=== PATIENT | male | born 1970 ===

== ENCOUNTER 2017-02-12 13:03 | Emergency (ER) | payer BC, OTHER ==
[2017-02-12 13:18] VITALS: BP 131/77; PULSE 92; RESP 20; TEMP 98.6; O2SAT 98; BMI 28.6
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
== END 2017-02-12 14:30 | disposition home or self-care (01) ==
LOC: C.ER 13:03
DX: F19.10 Other psychoactive substance abuse, uncomplicated (principal)

== ENCOUNTER 2017-04-09 17:02 | Emergency (ER) | payer BC, OTHER, MEDICAID ==
[2017-04-09 17:02] VITALS: BMI 28.6
[2017-04-09 17:07] VITALS: BP 107/74; PULSE 67; RESP 20; TEMP 98.2; O2SAT 98
[2017-04-09] MEDS ORDERED: Naproxen 550 mg Tab PO STA (17:27)
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
[2017-04-09] MEDS ORDERED: Naproxen 550 mg Tab PO ONE (17:33)
== END 2017-04-09 17:34 | disposition home or self-care (01) ==
LOC: C.ER 17:02 → SUPCPDRO 17:02 → C.ER 17:34
DX: J02.8 Acute pharyngitis due to other specified organisms (principal); Z72.0 Tobacco use

== ENCOUNTER 2017-06-24 15:33 | Inpatient (IN) | payer BC, OTHER, MEDICAID ==
[2017-06-24 15:42] VITALS: BMI 22.7
[2017-06-24] MEDS ORDERED: Sodium Chloride 0.9% 1,000 ML IV ONE (16:09)
[2017-06-24 16:41] LABS: BASO # 0.1 K/uL (0.0-0.2); BASO % 0.3 % (0.0-2.0); EOS % 0.3 % (0.0-4.0); HEMATOCRIT 39.8 % (35.0-51.0); LYMPH # 0.9 K/uL (1.0-4.3); LYMPH % 5.6 % (20.0-40.0); MEAN CELL VOLUME 78.4 fL (80.0-94.0); MEAN CORPUSCULAR HEMOGLOBIN 26.2 pg (27.0-31.0); MEAN CORPUSCULAR HGB CONC 33.4 g/dL (33.0-37.0); MONO % 6.1 % (0.0-10.0); PLATELET COUNT 214 K/uL (130-400); WHITE BLOOD COUNT 16.4 K/uL (4.8-10.8)
[2017-06-24 16:49] LABS: CHLORIDE 93 mmol/L (98-107); POTASSIUM 4.2 mmol/L (3.6-5.2); SODIUM 130 mmol/L (132-148)
[2017-06-24 16:51] LABS: ALB/GLOB RATIO 0.9 (1.0-2.1); AST/SGOT 39 U/L (17-59); BILIRUBIN,TOTAL 1.8 mg/dL (0.2-1.3); CARBON DIOXIDE 24 mmol/L (22-30); GFR AFRICAN-AMERICAN > 60; TOTAL PROTEIN 8.1 g/dL (6.3-8.3)
[2017-06-24 16:52] LABS: ALCOHOL SERUM < 10 mg/dl (0-10); ALKALINE PHOSPHATASE 82 U/L (38-126); ALT/SGPT 48 U/L (21-72); BLOOD UREA NITROGEN 16 mg/dL (9-20); CALCIUM 8.6 mg/dl (8.6-10.4); GLUCOSE,RANDOM 103 mg/dL (75-110)
[2017-06-24 16:57] LABS: INR 1.4
--- NOTE | 2017-06-24 16:58 | RAD ---
HISTORY: Cough COMPARISON: Chest x-ray performed 05/21/16 TECHNIQUE: Chest, one view. FINDINGS: LUNGS: No focal consolidation. Please note that chest x-ray has limited sensitivity for the detection of pulmonary masses. PLEURA: No significant pleural effusion identified. No definite pneumothorax . CARDIOVASCULAR: The cardiomediastinal silhouette appears within normal limits of size. OSSEOUS STRUCTURES: No acute osseous abnormality identified. VISUALIZED UPPER ABDOMEN: Unremarkable. OTHER FINDINGS: None. IMPRESSION: No focal consolidation, significant pleural effusion, or definite pneumothorax identified.
[2017-06-24 17:18] LABS: RBC URINE 41 /hpf (0-3); URINE BACTERIA MOD (<OCC); URINE BILIRUBIN NEGATIVE (NEGATIVE); URINE BLOOD 3+ (NEGATIVE); URINE COLOR Amber (YELLOW); URINE GLUCOSE (UA) NORMAL (Normal); URINE KETONE 1+ mg/dL (NEGATIVE); URINE LEUKOCYTE ESTERASE 3+ Leu/uL (Negative); URINE PROTEIN 2+ mg/dL (NEGATIVE); URINE UROBILINOGEN NORMAL mg/dL (0.2-1.0); WBC CLUMPS MANY /hpf; WBC URINE 1496 /hpf (0-5)
--- NOTE | 2017-06-24 18:50 | CT ---
PROCEDURE: CT Abdomen and Pelvis without intravenous contrast HISTORY: abd and back pain. UTI. r/o kidney stones. COMPARISON: None. TECHNIQUE: Axial and reformatted coronal and sagittal CT images of the abdomen and pelvis were obtained without IV or oral contrast administration.. Contrast Dose: 0 Radiation dose: Total exam DLP = 208.26 mGy-cm. This CT exam was performed using one or more of the following dose reduction techniques: Automated exposure control, adjustment of the mA and/or kV according to patient size, and/or use of iterative reconstruction technique. FINDINGS: LOWER THORAX: Unremarkable. LIVER: The liver is mildly enlarged demonstrate heterogeneous attenuation. GALLBLADDER AND BILE DUCTS: Unremarkable. PANCREAS: Unremarkable. No gross lesion or ductal dilatation. SPLEEN: The spleen is mildly enlarged measures up to 15 centimeter. ADRENALS: The adrenal glands are not well visualized. No definite evidence of mass lesion at the adrenals. KIDNEYS AND URETERS: No evidence of nephrolithiasis or hydronephrosis. Trace right perinephric fluid seen. VASCULATURE: Unremarkable. No aortic aneurysm. BOWEL: Unremarkable. No obstruction. No gross mural thickening. Mild wall thickening of the rectum noted. APPENDIX: The appendix is not clearly visualized. No definite evidence of acute appendicitis. PERITONEUM: Unremarkable. No free fluid. No free air. LYMPH NODES: Unremarkable. No enlarged lymph nodes. BLADDER: [id number] urinary bladder wall thickening. REPRODUCTIVE: Unremarkable. BONES: No acute fracture. OTHER FINDINGS: None. IMPRESSION: No evidence of nephrolithiasis or hydronephrosis. Trace right perinephric stranding and fluid seen. [id number] urinary bladder wall thickening. Splenomegaly of uncertain etiology.
[2017-06-24] MEDS ORDERED: cefTRIAXone IV 1 gm in Dextros 50 ML IVPB ONE ×2 (19:04→19:47)
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
[2017-06-24] MEDS ORDERED: Sodium Chloride 0.9% 1,000 ML IV SCH (20:00)
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
--- NOTE | 2017-06-24 21:44 | US ---
EXAM: US Retroperitoneal Complete, Renal EXAM DATE/TIME: 06/24/2017 7:59 PM CLINICAL HISTORY: 47 years old, male; Condition or disease; Other: Acute pyelonephritis TECHNIQUE: Real-time ultrasound of the retroperitoneum (complete) with image documentation. COMPARISON: There are no prior studies for comparison. CT abdomen pelvis 06/24/17 not available for comparison FINDINGS: Right kidney: Right kidney measures approximately 12.8 x 3.7 x 4.2 cm. There is increase cortical echogenicity.Corticomedullary differentiation is poorly visualized.There is no pelvocaliectasis. There is trace perinephric fluid Left kidney: Left kidney measures approximately 12 x 5 x 4.7 cm. Corticomedullary differentiation is visualized. There is no pelvocaliectasis. Bladder: Bladder is almost empty. There is mild bladder wall prominence. Aorta: Visualized portion of the aorta is unremarkable. IMPRESSION: Normal size kidneys, no hydronephrosis; medical renal disease on the right with trace perinephric fluid
[2017-06-24] MEDS: Sodium Chloride 0.9% 1,000 ML IV SCH (21:46)
[2017-06-24 22:12] LABS: NEUTROPHIL 78 % (50-75); TOTAL CELLS COUNTED 100
[2017-06-24 22:13] LABS: LARGE PLATELETS PRESENT; SMUDGE CELLS PRESENT
[2017-06-25] MEDS: Pantoprazole 40 mg EC Tab PO SCH (10:52)
[2017-06-25] MEDS: Enoxaparin 40 mg Syringe SC SCH (10:52)
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
--- NOTE | 2017-06-25 17:38 | CP.PCM.PN ---
Subjective - Date & Time of Evaluation Date of Evaluation: 06/25/17 Time of Evaluation: 07:40 - Subjective Subjective: clinically same Objective - Vital Signs/Intake and Output Vital Signs (last 24 hours): Temp Pulse Resp BP Pulse Ox 99.5 F 58 L 20 103/60 99 06/25/17 16:00 06/25/17 16:00 06/25/17 16:00 06/25/17 16:00 06/25/17 16:00 Intake and Output: 06/25/17 06/25/17 06:59 18:59 Intake Total 500 Balance 500 - Medications Medications: Current Medications Enoxaparin Sodium (Lovenox) 40 mg SC DAILY [facility] Last Admin: 06/25/17 10:52 Dose: 40 mg Sodium Chloride (Sodium Chloride 0.9%) 1,000 mls @ 50 mls/hr IV .Q20H [facility] Last Admin: 06/24/17 21:46 Dose: 50 mls/hr Vancomycin HCl 1 gm/ Sodium (Chloride) 250 mls @ 166.7 mls/hr IVPB Q24H [facility] Cefepime HCl (Maxipime Iv 1 Gm Premix) 1 gm in 50 mls @ 100 mls/hr IVPB Q12H [facility] Pantoprazole Sodium (Protonix Ec Tab) 40 mg PO DAILY [facility] Last Admin: 06/25/17 10:52 Dose: 40 mg - Labs Labs: 06/24/17 16:36 06/24/17 16:36 PT 15.4 SECONDS (9.7-12.2) H 06/24/17 16:36 INR 1.4 06/24/17 16:36 APTT 35 SECONDS (21-34) H 06/24/17 16:36 - Constitutional Appears: Well - Head Exam Head Exam: ATRAUMATIC, NORMAL INSPECTION, NORMOCEPHALIC - Eye Exam Eye Exam: EOMI, Normal appearance, PERRL Pupil Exam: NORMAL ACCOMODATION, PERRL - ENT Exam ENT Exam: Mucous Membranes Moist, Normal Exam - Neck Exam Neck Exam: Full ROM, Normal Inspection. absent: Lymphadenopathy - Respiratory Exam Respiratory Exam: Decreased Breath Sounds - Cardiovascular Exam Cardiovascular Exam: REGULAR RHYTHM, +S1, +S2 - GI/Abdominal Exam GI & Abdominal Exam: Soft, Diminished Bowel Sounds - Rectal Exam Rectal Exam: Deferred
[2017-06-25] MEDS: Cefepime IV 1 gm in Dextrose 1 GM/50 ML BAG IVPB SCH (17:42)
[2017-06-25] MEDS: Sodium Chloride 0.9% 1,000 ML IV SCH ×2 (17:44→21:11)
[2017-06-26] MEDS: Cefepime IV 1 gm in Dextrose 1 GM/50 ML BAG IVPB SCH ×2 (04:37→17:34)
[2017-06-26 07:57] LABS: BASO % 0.1 % (0.0-2.0); EOS % 0.1 % (0.0-4.0); HEMATOCRIT 38.1 % (35.0-51.0); LYMPH # 1.7 K/uL (1.0-4.3); LYMPH % 15.5 % (20.0-40.0); MEAN CELL VOLUME 78.5 fL (80.0-94.0); MEAN CORPUSCULAR HEMOGLOBIN 26.2 pg (27.0-31.0); MEAN CORPUSCULAR HGB CONC 33.4 g/dL (33.0-37.0); MEAN PLATELET VOLUME 8.4 fL (7.2-11.7); NRBC % 0.1 % (0.0-2.0); RED CELL DISTRIBUTION WIDTH 14.9 % (11.5-14.5)
[2017-06-26 08:14] LABS: CHLORIDE 103 mmol/L (98-107)
[2017-06-26 08:15] LABS: POTASSIUM 3.3 mmol/L (3.6-5.2); SODIUM 134 mmol/L (132-148)
[2017-06-26 08:17] LABS: GFR AFRICAN-AMERICAN > 60
[2017-06-26 08:18] LABS: BLOOD UREA NITROGEN 18 mg/dL (9-20); CALCIUM 8.2 mg/dl (8.6-10.4); CARBON DIOXIDE 20 mmol/L (22-30); GLUCOSE,RANDOM 99 mg/dL (75-110)
[2017-06-26] MEDS ORDERED: Potassium Chloride 20 mEq ER Tab PO ONE ×2 (08:33→10:00)
[2017-06-26] MEDS: Enoxaparin 40 mg Syringe SC SCH ×2 (08:55→14:34)
[2017-06-26] MEDS: Pantoprazole 40 mg EC Tab PO SCH ×2 (08:55→14:34)
[2017-06-26] MEDS: Sodium Chloride 0.9% 1,000 ML IV SCH ×2 (14:37→17:36)
--- NOTE | 2017-06-26 17:21 | CP.PCM.PN ---
Subjective - Date & Time of Evaluation Date of Evaluation: 06/26/17 Time of Evaluation: 08:00 - Subjective Subjective: clinically same Objective - Vital Signs/Intake and Output Vital Signs (last 24 hours): Temp Pulse Resp BP Pulse Ox 97.7 F 52 L 20 112/61 99 06/26/17 09:00 06/26/17 15:41 06/26/17 09:00 06/26/17 15:41 06/26/17 15:41 Intake and Output: 06/26/17 06/26/17 06:59 18:59 Intake Total 1300 Balance 1300 - Medications Medications: Current Medications Enoxaparin Sodium (Lovenox) 40 mg SC DAILY [facility] Last Admin: 06/26/17 14:34 Dose: Not Given Sodium Chloride (Sodium Chloride 0.9%) 1,000 mls @ 50 mls/hr IV .Q20H [facility] Last Admin: 06/26/17 14:37 Dose: Not Given Vancomycin HCl 1 gm/ Sodium (Chloride) 250 mls @ 166.7 mls/hr IVPB Q24H [facility] Last Admin: 06/25/17 19:26 Dose: 166.7 mls/hr Cefepime HCl (Maxipime Iv 1 Gm Premix) 1 gm in 50 mls @ 100 mls/hr IVPB Q12H [facility] Last Admin: 06/26/17 04:37 Dose: 100 mls/hr Pantoprazole Sodium (Protonix Ec Tab) 40 mg PO DAILY [facility] Last Admin: 06/26/17 14:34 Dose: Not Given - Labs Labs: 06/26/17 07:48 06/26/17 07:48 PT 15.4 SECONDS (9.7-12.2) H 06/24/17 16:36 INR 1.4 06/24/17 16:36 APTT 35 SECONDS (21-34) H 06/24/17 16:36 - Constitutional Appears: Well - Head Exam Head Exam: ATRAUMATIC, NORMAL INSPECTION, NORMOCEPHALIC - Eye Exam Eye Exam: EOMI, Normal appearance, PERRL Pupil Exam: NORMAL ACCOMODATION, PERRL - ENT Exam ENT Exam: Mucous Membranes Moist, Normal Exam - Neck Exam Neck Exam: Full ROM, Normal Inspection. absent: Lymphadenopathy - Respiratory Exam Respiratory Exam: Decreased Breath Sounds - Cardiovascular Exam Cardiovascular Exam: REGULAR RHYTHM, +S1, +S2 - GI/Abdominal Exam GI & Abdominal Exam: Soft, Diminished Bowel Sounds - Rectal Exam Rectal Exam: Deferred
--- NOTE | 2017-06-26 18:26 | CP.PCM.PN ---
Subjective - Date & Time of Evaluation Date of Evaluation: 06/26/17 Time of Evaluation: 07:00 - Subjective Subjective: events noted urine + e coli rx in progress Objective - Vital Signs/Intake and Output Vital Signs (last 24 hours): Temp Pulse Resp BP Pulse Ox 97.7 F 52 L 20 112/61 99 06/26/17 09:00 06/26/17 15:41 06/26/17 09:00 06/26/17 15:41 06/26/17 15:41 Intake and Output: 06/26/17 06/26/17 06:59 18:59 Intake Total 1300 Balance 1300 - Medications Medications: Current Medications Enoxaparin Sodium (Lovenox) 40 mg SC DAILY [facility] Last Admin: 06/26/17 14:34 Dose: Not Given Sodium Chloride (Sodium Chloride 0.9%) 1,000 mls @ 50 mls/hr IV .Q20H [facility] Last Admin: 06/26/17 17:36 Dose: 50 mls/hr Vancomycin HCl 1 gm/ Sodium (Chloride) 250 mls @ 166.7 mls/hr IVPB Q24H [facility] Last Admin: 06/25/17 19:26 Dose: 166.7 mls/hr Cefepime HCl (Maxipime Iv 1 Gm Premix) 1 gm in 50 mls @ 100 mls/hr IVPB Q12H [facility] Last Admin: 06/26/17 17:34 Dose: 100 mls/hr Pantoprazole Sodium (Protonix Ec Tab) 40 mg PO DAILY [facility] Last Admin: 06/26/17 14:34 Dose: Not Given - Labs Labs: 06/26/17 07:48 06/26/17 07:48 PT 15.4 SECONDS (9.7-12.2) H 06/24/17 16:36 INR 1.4 06/24/17 16:36 APTT 35 SECONDS (21-34) H 06/24/17 16:36 - Constitutional Appears: Non-toxic, Chronically Ill - Head Exam Head Exam: NORMOCEPHALIC - Eye Exam Eye Exam: PERRL. absent: Scleral icterus - ENT Exam ENT Exam: Mucous Membranes Dry - Neck Exam Neck Exam: absent: Lymphadenopathy - Respiratory Exam Respiratory Exam: Decreased Breath Sounds, Clear to Ausculation Bilateral - Cardiovascular Exam Cardiovascular Exam: REGULAR RHYTHM - GI/Abdominal Exam GI & Abdominal Exam: Distended, Soft Assessment and Plan (1) Acute pyelonephritis Status: Acute - Assessment and Plan (Free Text) Plan: cont iv rx eval
[2017-06-27] MEDS: Cefepime IV 1 gm in Dextrose 1 GM/50 ML BAG IVPB SCH ×2 (04:41→18:42)
[2017-06-27 07:33] LABS: BASO % 0.2 % (0.0-2.0); EOS % 0.3 % (0.0-4.0); HEMATOCRIT 35.4 % (35.0-51.0); LYMPH # 1.7 K/uL (1.0-4.3); LYMPH % 19.9 % (20.0-40.0); MEAN CELL VOLUME 78.2 fL (80.0-94.0); MEAN CORPUSCULAR HEMOGLOBIN 26.3 pg (27.0-31.0); MEAN CORPUSCULAR HGB CONC 33.7 g/dL (33.0-37.0); MEAN PLATELET VOLUME 8.2 fL (7.2-11.7); MONO # 0.7 K/uL (0.0-0.8); MONO % 8.8 % (0.0-10.0); WHITE BLOOD COUNT 8.3 K/uL (4.8-10.8)
[2017-06-27 07:40] LABS: CHLORIDE 107 mmol/L (98-107); POTASSIUM 3.6 mmol/L (3.6-5.2); SODIUM 139 mmol/L (132-148)
[2017-06-27 07:43] LABS: BLOOD UREA NITROGEN 12 mg/dL (9-20); CARBON DIOXIDE 21 mmol/L (22-30); GFR AFRICAN-AMERICAN > 60
[2017-06-27 07:44] LABS: CALCIUM 8.8 mg/dl (8.6-10.4); GLUCOSE,RANDOM 96 mg/dL (75-110)
[2017-06-27 08:15] LABS: PROSTATE SPECIFIC ANTIGEN 3.38 ng/mL (0.00-4.0)
[2017-06-27] MEDS: Sodium Chloride 0.9% 1,000 ML IV SCH (08:37)
[2017-06-27] MEDS: Enoxaparin 40 mg Syringe SC SCH (10:33)
[2017-06-27] MEDS: Pantoprazole 40 mg EC Tab PO SCH (10:34)
--- NOTE | 2017-06-27 10:58 | CP.PCM.PN ---
Subjective - Date & Time of Evaluation Date of Evaluation: 06/27/17 Time of Evaluation: 07:40 - Subjective Subjective: clinically same Objective - Vital Signs/Intake and Output Vital Signs (last 24 hours): Temp Pulse Resp BP Pulse Ox 98.1 F 54 L 20 125/76 100 06/27/17 08:41 06/27/17 08:41 06/27/17 08:41 06/27/17 08:41 06/27/17 08:41 Intake and Output: 06/27/17 06/27/17 06:59 18:59 Intake Total 900 Balance 900 - Medications Medications: Current Medications Enoxaparin Sodium (Lovenox) 40 mg SC DAILY [facility] Last Admin: 06/27/17 10:33 Dose: 40 mg Sodium Chloride (Sodium Chloride 0.9%) 1,000 mls @ 50 mls/hr IV .Q20H [facility] Last Admin: 06/27/17 08:37 Dose: Not Given Cefepime HCl (Maxipime Iv 1 Gm Premix) 1 gm in 50 mls @ 100 mls/hr IVPB Q12H [facility] Last Admin: 06/27/17 04:41 Dose: 100 mls/hr Pantoprazole Sodium (Protonix Ec Tab) 40 mg PO DAILY [facility] Last Admin: 06/27/17 10:34 Dose: 40 mg Temazepam (Restoril) 15 mg PO HS [facility] Last Admin: 06/26/17 21:55 Dose: 15 mg - Labs Labs: 06/27/17 07:20 06/27/17 07:20 PT 15.4 SECONDS (9.7-12.2) H 06/24/17 16:36 INR 1.4 06/24/17 16:36 APTT 35 SECONDS (21-34) H 06/24/17 16:36 - Constitutional Appears: Well - Head Exam Head Exam: ATRAUMATIC, NORMAL INSPECTION, NORMOCEPHALIC - Eye Exam Eye Exam: EOMI, Normal appearance, PERRL Pupil Exam: NORMAL ACCOMODATION, PERRL - ENT Exam ENT Exam: Mucous Membranes Moist, Normal Exam - Neck Exam Neck Exam: Full ROM, Normal Inspection. absent: Lymphadenopathy - Respiratory Exam Respiratory Exam: Decreased Breath Sounds - Cardiovascular Exam Cardiovascular Exam: REGULAR RHYTHM, +S1, +S2 - GI/Abdominal Exam GI & Abdominal Exam: Soft, Diminished Bowel Sounds - Rectal Exam Rectal Exam: Deferred
--- NOTE | 2017-06-27 19:07 | CP.PCM.PN ---
Subjective - Date & Time of Evaluation Date of Evaluation: 06/27/17 Time of Evaluation: 09:00 - Subjective Subjective: still with pain recc eval cont iv rx Objective - Vital Signs/Intake and Output Vital Signs (last 24 hours): Temp Pulse Resp BP Pulse Ox 97.6 F 61 20 117/64 96 06/27/17 15:00 06/27/17 15:00 06/27/17 15:00 06/27/17 15:00 06/27/17 15:00 - Medications Medications: Current Medications Enoxaparin Sodium (Lovenox) 40 mg SC DAILY [facility] Last Admin: 06/27/17 10:33 Dose: 40 mg Sodium Chloride (Sodium Chloride 0.9%) 1,000 mls @ 50 mls/hr IV .Q20H [facility] Last Admin: 06/27/17 08:37 Dose: Not Given Cefepime HCl (Maxipime Iv 1 Gm Premix) 1 gm in 50 mls @ 100 mls/hr IVPB Q12H [facility] Last Admin: 06/27/17 18:42 Dose: 100 mls/hr Ketorolac Tromethamine (Toradol) 30 mg IVP Q6 [facility] Ondansetron HCl (Zofran Inj) 4 mg IVP Q8H PRN PRN Reason: Nausea/Vomiting Pantoprazole Sodium (Protonix Ec Tab) 40 mg PO DAILY [facility] Last Admin: 06/27/17 10:34 Dose: 40 mg Temazepam (Restoril) 15 mg PO HS [facility] Last Admin: 06/26/17 21:55 Dose: 15 mg - Labs Labs: 06/27/17 07:20 06/27/17 07:20 PT 15.4 SECONDS (9.7-12.2) H 06/24/17 16:36 INR 1.4 06/24/17 16:36 APTT 35 SECONDS (21-34) H 06/24/17 16:36 Assessment and Plan (1) Acute pyelonephritis Status: Acute
[2017-06-28] MEDS: Cefepime IV 1 gm in Dextrose 1 GM/50 ML BAG IVPB SCH ×2 (04:57→17:46)
[2017-06-28] MEDS: Pantoprazole 40 mg EC Tab PO SCH (09:58)
[2017-06-28] MEDS: Enoxaparin 40 mg Syringe SC SCH (09:58)
--- NOTE | 2017-06-28 10:49 | CP.PCM.CON ---
<Hortencia Cordero - Last Filed: 06/28/17 10:44> History of Present Illness - History of Present Illness History of Present Illness: GI Fellow PGY4 Consult Note This is a 47yM with a pmhx of bipolar disorder, depression, alcohol and IVDA. Pt is presenting to the ER with complains of back pain, nausea, vomiting and dysuria. Pt says his symptoms started 2 days [employer]. Pt had a CT scan in the ER done showing right perinephric stranding concern for pyelonephritis and UTI/cx Ecoli. Pt is currently on IV abx and being managed by ID. Pt was also found to have Hep C on labs and when discussed with pt, he was never told he had Hep C. At the time of evaluation pt is eating Ghanaian toast with no nausea or vomiting, but is complaining about right flank pain and dysuria. No prior endoscopic evaluation. ROS: A 12pt ROS was obtained and was negative except as above. PMHX: As stated in HPI PSHX: Denies SHx: Denies alcohol use, does use IV drugs heroin FHx: Denies colon cancer Past Patient History - Infectious Disease Hx of Infectious Diseases: MRSA - Past Medical History & Family History Past Medical History?: No - Past Social History Smoking Status: Never Smoked - CARDIAC Hx Hypertension: No - PULMONARY Hx Asthma: Yes - NEUROLOGICAL Hx Seizures: No - HEENT Hx HEENT Problems: No - RENAL Hx Chronic Kidney Disease: No - ENDOCRINE/METABOLIC Hx Endocrine Disorders: No - HEMATOLOGICAL/ONCOLOGICAL Hx Human Immunodeficiency Virus (HIV): No - INTEGUMENTARY Hx Dermatological Problems: Yes Other/Comment: Numerous scabs to bilateral extremities. - MUSCULOSKELETAL/RHEUMATOLOGICAL Hx Arthritis: Yes (b/l hip pain; b/l knee pain) - GASTROINTESTINAL Hx Gastrointestinal Disorders: No - GENITOURINARY/GYNECOLOGICAL Hx Sexually Transmitted Disorders: No - PSYCHIATRIC Hx Anxiety: Yes Hx Bipolar Disorder: Yes Hx Depression: Yes Hx Substance Use: Yes (cocaine) - SURGICAL HISTORY Hx Appendectomy: Yes - ANESTHESIA Hx Anesthesia: Yes Hx Anesthesia Reactions: No Hx Malignant Hyperthermia: No Has any member of the family had a problem w/ anesthesia?: No Meds Allergies/Adverse Reactions: Allergies Allergy/AdvReac Type Severity Reaction Status Date / Time cat dander Allergy Intermediate SHORTNESS Verified 06/24/17 15:40 OF BREATH dog dander Allergy Intermediate SHORTNESS Verified 06/24/17 15:40 OF BREATH - Medications Medications: Current Medications Enoxaparin Sodium (Lovenox) 40 mg SC DAILY [facility] Last Admin: 06/28/17 09:58 Dose: 40 mg Cefepime HCl (Maxipime Iv 1 Gm Premix) 1 gm in 50 mls @ 100 mls/hr IVPB Q12H [facility] Last Admin: 06/28/17 04:57 Dose: 100 mls/hr Ketorolac Tromethamine (Toradol) 30 mg IVP Q6 PRN PRN Reason: pain Ondansetron HCl (Zofran Inj) 4 mg IVP Q8H PRN PRN Reason: Nausea/Vomiting Pantoprazole Sodium (Protonix Ec Tab) 40 mg PO DAILY [facility] Last Admin: 06/28/17 09:58 Dose: 40 mg Temazepam (Restoril) 15 mg PO HS [facility] Last Admin: 06/27/17 22:09 Dose: 15 mg Physical Exam - Constitutional Appears: Non-toxic, No Acute Distress - Head Exam Head Exam: ATRAUMATIC, NORMAL INSPECTION, NORMOCEPHALIC - Eye Exam Eye Exam: EOMI, Normal appearance, PERRL Pupil Exam: PERRL - ENT Exam ENT Exam: Mucous Membranes Moist, Normal Exam - Neck Exam Neck exam: Positive for: Normal Inspection - Respiratory Exam Respiratory Exam: Clear to Auscultation Bilateral, NORMAL BREATHING PATTERN - Cardiovascular Exam Cardiovascular Exam: RRR, +S1, +S2 - GI/Abdominal Exam GI & Abdominal Exam: Distended, Normal Bowel Sounds, Soft, Tenderness. absent: Firm, Guarding, Organomegaly Additional comments: Right flank pain - Rectal Exam Rectal Exam: Deferred - Extremities Exam Extremities exam: Positive for: full ROM, normal inspection - Back Exam Back exam: CVA tenderness (R), NORMAL INSPECTION - Neurological Exam Neurological exam: Alert, Oriented x3 - Psychiatric Exam Psychiatric exam: Normal Affect, Normal Mood - Skin Skin Exam: Dry, Intact, Normal Color, Warm Results - Vital Signs Recent Vital Signs: Last Vital Signs Temp 97.6 F 06/27/17 15:00 Pulse 61 06/27/17 15:00 Resp 20 06/27/17 15:00 BP 117/64 06/27/17 15:00 Pulse Ox 96 06/27/17 15:00 - Labs Result Diagrams: 06/27/17 07:20 06/27/17 07:20 Assessment & Plan - Assessment and Plan (Free Text) Assessment: This is a 47yM presenting with abdominal pain, nausea and vomiting 1. Pyelonephritis 2. UTI 3. Nausea/vomiting 4. Hep C 5. IVDA Plan: -Continue supportive care with IV abx per ID for pyelonephritis -Nausea/vomiting and Right flank likely from infection -Tolerating regular diet -Diagnosis of Hep C with LFTs wnl, will need outpt follow for further workup, discussed with pt -No plan for endoscopic evaluation -Please call with any questions or concerns <Rey Castillo - Last Filed: 06/28/17 11:07> Meds - Medications Medications: Current Medications Enoxaparin Sodium (Lovenox) 40 mg SC DAILY [facility] Last Admin: 06/28/17 09:58 Dose: 40 mg Cefepime HCl (Maxipime Iv 1 Gm Premix) 1 gm in 50 mls @ 100 mls/hr IVPB Q12H [facility] Last Admin: 06/28/17 04:57 Dose: 100 mls/hr Ketorolac Tromethamine (Toradol) 30 mg IVP Q6 PRN PRN Reason: pain Ondansetron HCl (Zofran Inj) 4 mg IVP Q8H PRN PRN Reason: Nausea/Vomiting Pantoprazole Sodium (Protonix Ec Tab) 40 mg PO DAILY [facility] Last Admin: 06/28/17 09:58 Dose: 40 mg Temazepam (Restoril) 15 mg PO HS [facility] Last Admin: 06/27/17 22:09 Dose: 15 mg Results - Vital Signs Recent Vital Signs: Last Vital Signs Temp 97.6 F 06/27/17 15:00 Pulse 61 06/27/17 15:00 Resp 20 06/27/17 15:00 BP 117/64 06/27/17 15:00 Pulse Ox 96 06/27/17 15:00 - Labs Result Diagrams: 06/27/17 07:20 06/27/17 07:20 Attending/Attestation - Attestation I have personally seen and examined this patient.: Yes I have fully participated in the care of the patient.: Yes I have reviewed all pertinent clinical information: Yes Notes (Text): 06/28/17 11:01 I have seen and examined patient with GI fellow. Agree with above documentation with the following additions. In brief, this is a 47 year old male with history of bipolar disorder, polysubstance abuse who presents to hospital with complaint of right flank pain, nausea, and vomiting which began two days ago. The symptoms did not seem to be related to food consumption and he began to develop severe dysuria which prompted him to come to hospital. He denies vomiting, fever/chills, weight loss, rectal bleeding, or hematuria. He denies any recent urologic instrumentation. He ate malay toast this morning without any difficulty. No prior endoscopic evaluation. Bipolar disorder Polysubstance abuse Abdominal pain - CT imaging reviewed by me showing features consistent with pyelonephritis HCV - patient without prior knowledge of liver disease - Diet as tolerated - Continue with antibiotic therapy, follow up urine cultures - Pain control, anti-emetic therapy PRN - No further planned GI intervention, will sign off case. Patient requires outpatient follow up regarding newly diagnosed HCV, however will likely not be a candidate for therapy at this time given recent IV drug use (heroin). Current CT imaging does not show presence of worrisome hepatic lesion. Patient given office contact information. Please reconsult as necessary, thank you.
--- NOTE | 2017-06-28 18:48 | CP.PCM.PN ---
Subjective - Date & Time of Evaluation Date of Evaluation: 06/28/17 Time of Evaluation: 07:40 - Subjective Subjective: clinically same Objective - Vital Signs/Intake and Output Vital Signs (last 24 hours): Temp Pulse Resp BP Pulse Ox 97.6 F 63 20 114/70 100 06/28/17 15:00 06/28/17 15:00 06/28/17 15:00 06/28/17 15:00 06/28/17 15:00 Intake and Output: 06/28/17 06/28/17 06:59 18:59 Intake Total 850 Balance 850 - Medications Medications: Current Medications Enoxaparin Sodium (Lovenox) 40 mg SC DAILY [facility] Last Admin: 06/28/17 09:58 Dose: 40 mg Cefepime HCl (Maxipime Iv 1 Gm Premix) 1 gm in 50 mls @ 100 mls/hr IVPB Q12H [facility] Last Admin: 06/28/17 17:46 Dose: 100 mls/hr Ketorolac Tromethamine (Toradol) 30 mg IVP Q6 PRN PRN Reason: pain Ondansetron HCl (Zofran Inj) 4 mg IVP Q8H PRN PRN Reason: Nausea/Vomiting Pantoprazole Sodium (Protonix Ec Tab) 40 mg PO DAILY [facility] Last Admin: 06/28/17 09:58 Dose: 40 mg Temazepam (Restoril) 15 mg PO HS [facility] Last Admin: 06/27/17 22:09 Dose: 15 mg - Labs Labs: 06/27/17 07:20 06/27/17 07:20 PT 15.4 SECONDS (9.7-12.2) H 06/24/17 16:36 INR 1.4 06/24/17 16:36 APTT 35 SECONDS (21-34) H 06/24/17 16:36 - Constitutional Appears: Well - Head Exam Head Exam: ATRAUMATIC, NORMAL INSPECTION, NORMOCEPHALIC - Eye Exam Eye Exam: EOMI, Normal appearance, PERRL - ENT Exam ENT Exam: Mucous Membranes Moist, Normal Exam - Neck Exam Neck Exam: Full ROM, Normal Inspection. absent: Lymphadenopathy - Respiratory Exam Respiratory Exam: Decreased Breath Sounds - Cardiovascular Exam Cardiovascular Exam: REGULAR RHYTHM, +S1, +S2. absent: Murmur - GI/Abdominal Exam GI & Abdominal Exam: Diminished Bowel Sounds - Rectal Exam Rectal Exam: Deferred
[2017-06-29] MEDS: Cefepime IV 1 gm in Dextrose 1 GM/50 ML BAG IVPB SCH ×2 (04:11→16:14)
[2017-06-29] MEDS: Pantoprazole 40 mg EC Tab PO SCH (10:18)
[2017-06-29] MEDS: Enoxaparin 40 mg Syringe SC SCH (10:18)
--- NOTE | 2017-06-29 14:39 | CP.PCM.PN ---
Subjective - Date & Time of Evaluation Date of Evaluation: 06/29/17 Time of Evaluation: 09:00 - Subjective Subjective: events noted hep C + IV rx in progress will need out pt rx for hep C etiology of renal infection unclear PSA elevated but wnl should have eval to consider cysto Objective - Vital Signs/Intake and Output Vital Signs (last 24 hours): Temp Pulse Resp BP Pulse Ox 98 F 90 21 123/75 98 06/29/17 08:05 06/29/17 08:05 06/29/17 08:05 06/29/17 08:05 06/29/17 08:05 Intake and Output: 06/29/17 06/29/17 06:59 18:59 Intake Total 1000 Output Total 600 Balance 400 - Medications Medications: Current Medications Enoxaparin Sodium (Lovenox) 40 mg SC DAILY [facility] Last Admin: 06/29/17 10:18 Dose: 40 mg Cefepime HCl (Maxipime Iv 1 Gm Premix) 1 gm in 50 mls @ 100 mls/hr IVPB Q12H [facility] Last Admin: 06/29/17 04:11 Dose: 100 mls/hr Ketorolac Tromethamine (Toradol) 30 mg IVP Q6 PRN PRN Reason: pain Ondansetron HCl (Zofran Inj) 4 mg IVP Q8H PRN PRN Reason: Nausea/Vomiting Pantoprazole Sodium (Protonix Ec Tab) 40 mg PO DAILY [facility] Last Admin: 06/29/17 10:18 Dose: 40 mg Temazepam (Restoril) 15 mg PO HS [facility] Last Admin: 06/28/17 21:20 Dose: 15 mg - Labs Labs: 06/27/17 07:20 06/27/17 07:20 PT 15.4 SECONDS (9.7-12.2) H 06/24/17 16:36 INR 1.4 06/24/17 16:36 APTT 35 SECONDS (21-34) H 06/24/17 16:36 - Constitutional Appears: Non-toxic, Cachectic, Chronically Ill - Head Exam Head Exam: NORMOCEPHALIC - Eye Exam Eye Exam: PERRL. absent: Scleral icterus - ENT Exam ENT Exam: Mucous Membranes Dry - Neck Exam Neck Exam: absent: Lymphadenopathy - Respiratory Exam Respiratory Exam: Decreased Breath Sounds - Cardiovascular Exam Cardiovascular Exam: REGULAR RHYTHM - GI/Abdominal Exam GI & Abdominal Exam: Distended, Soft - Rectal Exam Rectal Exam: Deferred - Exam Exam: NORMAL INSPECTION - Extremities Exam Extremities Exam: absent: Calf Tenderness, Pedal Edema Assessment and Plan (1) Acute pyelonephritis Status: Acute - Assessment and Plan (Free Text) Plan: recc eval
[2017-06-29 17:23] LABS: RBC URINE < 1 /hpf (0-3); URINE BILIRUBIN NEGATIVE (NEGATIVE); URINE BLOOD 1+ (NEGATIVE); URINE COLOR Straw (YELLOW); URINE GLUCOSE (UA) NORMAL (Normal); URINE KETONE NEGATIVE (NEGATIVE); URINE LEUKOCYTE ESTERASE NEG Leu/uL (Negative); URINE PROTEIN NEGATIVE (NEGATIVE); URINE UROBILINOGEN NORMAL mg/dL (0.2-1.0); WBC URINE 2 /hpf (0-5)
[2017-06-29 17:24] VITALS: RESP 20
--- NOTE | 2017-06-29 17:45 | CP.PCM.PN ---
Subjective - Date & Time of Evaluation Date of Evaluation: 06/29/17 Time of Evaluation: 07:40 - Subjective Subjective: clinically same Objective - Vital Signs/Intake and Output Vital Signs (last 24 hours): Temp Pulse Resp BP Pulse Ox 98.1 F 54 L 20 118/68 100 06/29/17 16:00 06/29/17 16:00 06/29/17 16:00 06/29/17 16:00 06/29/17 16:00 Intake and Output: 06/29/17 06/29/17 06:59 18:59 Intake Total 1000 Output Total 600 Balance 400 - Medications Medications: Current Medications Enoxaparin Sodium (Lovenox) 40 mg SC DAILY [facility] Last Admin: 06/29/17 10:18 Dose: 40 mg Cefepime HCl (Maxipime Iv 1 Gm Premix) 1 gm in 50 mls @ 100 mls/hr IVPB Q12H [facility] Last Admin: 06/29/17 16:14 Dose: 100 mls/hr Ketorolac Tromethamine (Toradol) 30 mg IVP Q6 PRN PRN Reason: pain Ondansetron HCl (Zofran Inj) 4 mg IVP Q8H PRN PRN Reason: Nausea/Vomiting Pantoprazole Sodium (Protonix Ec Tab) 40 mg PO DAILY [facility] Last Admin: 06/29/17 10:18 Dose: 40 mg Temazepam (Restoril) 15 mg PO HS [facility] Last Admin: 06/28/17 21:20 Dose: 15 mg - Labs Labs: 06/27/17 07:20 06/27/17 07:20 PT 15.4 SECONDS (9.7-12.2) H 06/24/17 16:36 INR 1.4 06/24/17 16:36 APTT 35 SECONDS (21-34) H 06/24/17 16:36 - Constitutional Appears: Well - Head Exam Head Exam: ATRAUMATIC, NORMAL INSPECTION, NORMOCEPHALIC - Eye Exam Eye Exam: EOMI, Normal appearance, PERRL Pupil Exam: NORMAL ACCOMODATION, PERRL - ENT Exam ENT Exam: Mucous Membranes Moist, Normal Exam - Neck Exam Neck Exam: Full ROM, Normal Inspection. absent: Lymphadenopathy - Respiratory Exam Respiratory Exam: Decreased Breath Sounds - Cardiovascular Exam Cardiovascular Exam: REGULAR RHYTHM, +S1, +S2. absent: Murmur - GI/Abdominal Exam GI & Abdominal Exam: Diminished Bowel Sounds - Rectal Exam Rectal Exam: Deferred
[2017-06-30] MEDS: Cefepime IV 1 gm in Dextrose 1 GM/50 ML BAG IVPB SCH ×2 (04:41→17:03)
--- NOTE | 2017-06-30 10:08 | CP.PCM.PN ---
Subjective - Date & Time of Evaluation Date of Evaluation: 06/30/17 Time of Evaluation: 10:04 - Subjective Subjective: PGY-[address] Fonseca's Service: Pt seen and examined at bedside. Pt reporting much improved pain to flank over the weekend. Describes flank pain now as minimal. He denies difficulty/pain with urination. He further denies fever, chills, chest pain, abdominal pain, SOB , N/V/D/C. Patient is a 47y male, with PMHx of bipolar disorder, depression, alcohol and IVDA. Pt presented to [facility] ED on 06/24/17 with complaints of back pain, nausea, vomiting and dysuria. Pt says his symptoms started "a few days" before presenting. CT imaging in the ER done showing right perinephric stranding concern for pyelonephritis and UTI/cx Ecoli. Pt is currently on IV abx for pyelonephritis that is being managed by ID. Serology showing Hep C on labs and when discussed with pt, he was never told he had Hep C. Objective - Vital Signs/Intake and Output Vital Signs (last 24 hours): Temp Pulse Resp BP Pulse Ox 98.3 F 53 L 20 107/64 100 06/30/17 09:21 06/30/17 09:21 06/30/17 09:21 06/30/17 09:21 06/30/17 09:21 Intake and Output: 06/30/17 06/30/17 06:59 18:59 Intake Total 400 Output Total 600 Balance -200 - Medications Medications: Current Medications Enoxaparin Sodium (Lovenox) 40 mg SC DAILY [facility] Last Admin: 06/29/17 10:18 Dose: 40 mg Cefepime HCl (Maxipime Iv 1 Gm Premix) 1 gm in 50 mls @ 100 mls/hr IVPB Q12H [facility] Last Admin: 06/30/17 04:41 Dose: 100 mls/hr Ondansetron HCl (Zofran Inj) 4 mg IVP Q8H PRN PRN Reason: Nausea/Vomiting Pantoprazole Sodium (Protonix Ec Tab) 40 mg PO DAILY [facility] Last Admin: 06/29/17 10:18 Dose: 40 mg Temazepam (Restoril) 15 mg PO HS [facility] Last Admin: 06/29/17 21:12 Dose: 15 mg - Labs Labs: 06/27/17 07:20 06/27/17 07:20 PT 15.4 SECONDS (9.7-12.2) H 06/24/17 16:36 INR 1.4 06/24/17 16:36 APTT 35 SECONDS (21-34) H 06/24/17 16:36 - Constitutional Appears: Non-toxic, No Acute Distress - Head Exam Head Exam: ATRAUMATIC, NORMOCEPHALIC - Eye Exam Eye Exam: EOMI, Normal appearance Pupil Exam: PERRL - ENT Exam ENT Exam: Mucous Membranes Moist - Neck Exam Neck Exam: Full ROM - Respiratory Exam Respiratory Exam: Clear to Ausculation Bilateral, NORMAL BREATHING PATTERN. absent: Rales, Rhonchi, Wheezes - Cardiovascular Exam Cardiovascular Exam: REGULAR RHYTHM, +S1, +S2 - GI/Abdominal Exam GI & Abdominal Exam: Soft, Normal Bowel Sounds. absent: Tenderness - Back Exam Back Exam: CVA tenderness (R) (minimal right sided CVA tenderness). absent: CVA tenderness (L) - Neurological Exam Neurological Exam: Alert, Awake, Oriented x3 - Psychiatric Exam Psychiatric exam: Normal Affect, Normal Mood - Skin Skin Exam: Normal Color, Warm Assessment and Plan - Assessment and Plan (Free Text) Plan: Pyelonephritis CT A/P W/O (06/24/17): No evidence of nephrolithiasis or hydronephrosis. Trace right perinephric stranding and fluid seen. (see full report) Renal US (06/24/17): Normal size kidneys, no hydronephrosis, medical renal disease on right with trace perinephric fluid ID consult: Dr. Nash, lawson appreciated - Cefepime 1gm IV Q12H (first dose: 06/25/17) Zofran 4mg IV Q8H PRN consult: Dr. Ash - pt will be given instructions to follow up as OPDX by Dr. Fonseca Blood Cx negative x 5 days x 2 UTI: UA (06/24/17): Protein 2+, Ketones 1+, Blood 3+, EBC 1496, RBC 41, Moderate Bacteria - repeat UA (06/29/17): negative LE, WBC WNL, RBC WNL, Nitrate Negative, Protein negative Hepatitis C - serology positive - pt denies prior knowledge GI consult, Dr. Castillo, help appreciated - LFTs WNL, will need outpt workup - likely not candidate due to recent IVDA - no plan for endoscopic evaluation Hx of IVDA Toxicology screening (06/24/17): Postive for opiates. Insomnia Temazepam 15mg PO HS Prophylaxis Protonix 40mg PO Daily Lovenox 40mg SC daily [facility] Disposition: Pt for discharge today Jordan Escalante PGY-2 Discussed with attending. All medical management by Dr. Simeon Fonseca.
[2017-06-30] MEDS: Pantoprazole 40 mg EC Tab PO SCH (10:41)
[2017-06-30] MEDS: Enoxaparin 40 mg Syringe SC SCH (10:41)
--- NOTE | 2017-06-30 11:59 | CP.PCM.PN ---
Subjective - Date & Time of Evaluation Date of Evaluation: 06/30/17 Time of Evaluation: 08:00 - Subjective Subjective: still has flank pain/ dysuria may need eval if ok with Dr Fonseca IV rx to continue Hep C rx as out pt Objective - Vital Signs/Intake and Output Vital Signs (last 24 hours): Temp Pulse Resp BP Pulse Ox 98.3 F 53 L 20 107/64 100 06/30/17 09:21 06/30/17 09:21 06/30/17 09:21 06/30/17 09:21 06/30/17 09:21 Intake and Output: 06/30/17 06/30/17 06:59 18:59 Intake Total 400 Output Total 600 Balance -200 - Medications Medications: Current Medications Enoxaparin Sodium (Lovenox) 40 mg SC DAILY [facility] Last Admin: 06/30/17 10:41 Dose: 40 mg Cefepime HCl (Maxipime Iv 1 Gm Premix) 1 gm in 50 mls @ 100 mls/hr IVPB Q12H [facility] Last Admin: 06/30/17 04:41 Dose: 100 mls/hr Ondansetron HCl (Zofran Inj) 4 mg IVP Q8H PRN PRN Reason: Nausea/Vomiting Pantoprazole Sodium (Protonix Ec Tab) 40 mg PO DAILY [facility] Last Admin: 06/30/17 10:41 Dose: 40 mg Temazepam (Restoril) 15 mg PO HS [facility] Last Admin: 06/29/17 21:12 Dose: 15 mg - Labs Labs: 06/27/17 07:20 06/27/17 07:20 PT 15.4 SECONDS (9.7-12.2) H 06/24/17 16:36 INR 1.4 06/24/17 16:36 APTT 35 SECONDS (21-34) H 06/24/17 16:36 - Constitutional Appears: Non-toxic, Chronically Ill - Head Exam Head Exam: NORMOCEPHALIC - Eye Exam Eye Exam: PERRL - ENT Exam ENT Exam: Mucous Membranes Dry - Neck Exam Neck Exam: absent: Lymphadenopathy - Respiratory Exam Respiratory Exam: Decreased Breath Sounds - Cardiovascular Exam Cardiovascular Exam: REGULAR RHYTHM Assessment and Plan (1) Acute pyelonephritis Status: Acute
--- NOTE | 2017-06-30 16:45 | CARD ---
APPROVED REPORT EKG Measurement Heart [id number] <Conclusion> Sinus bradycardia Otherwise normal ECG
[2017-06-30 16:58] VITALS: BP 104/64; PULSE 76; TEMP 98; O2SAT 99
--- NOTE | 2017-06-30 18:17 | CP.PCM.PN ---
Subjective - Date & Time of Evaluation Date of Evaluation: 06/30/17 Time of Evaluation: 07:40 - Subjective Subjective: clinically same Objective - Vital Signs/Intake and Output Vital Signs (last 24 hours): Temp Pulse Resp BP Pulse Ox 98 F 76 20 104/64 99 06/30/17 15:00 06/30/17 15:00 06/30/17 15:00 06/30/17 15:00 06/30/17 15:00 Intake and Output: 06/30/17 06/30/17 06:59 18:59 Intake Total 400 500 Output Total 600 Balance -200 500 - Medications Medications: Current Medications Enoxaparin Sodium (Lovenox) 40 mg SC DAILY [facility] Last Admin: 06/30/17 10:41 Dose: 40 mg Cefepime HCl (Maxipime Iv 1 Gm Premix) 1 gm in 50 mls @ 100 mls/hr IVPB Q12H [facility] Last Admin: 06/30/17 17:03 Dose: 100 mls/hr Ondansetron HCl (Zofran Inj) 4 mg IVP Q8H PRN PRN Reason: Nausea/Vomiting Pantoprazole Sodium (Protonix Ec Tab) 40 mg PO DAILY [facility] Last Admin: 06/30/17 10:41 Dose: 40 mg Temazepam (Restoril) 15 mg PO HS [facility] Last Admin: 06/29/17 21:12 Dose: 15 mg - Labs Labs: 06/27/17 07:20 06/27/17 07:20 PT 15.4 SECONDS (9.7-12.2) H 06/24/17 16:36 INR 1.4 06/24/17 16:36 APTT 35 SECONDS (21-34) H 06/24/17 16:36 - Constitutional Appears: Well - Head Exam Head Exam: ATRAUMATIC, NORMAL INSPECTION, NORMOCEPHALIC - Eye Exam Eye Exam: EOMI, Normal appearance, PERRL Pupil Exam: NORMAL ACCOMODATION, PERRL - ENT Exam ENT Exam: Mucous Membranes Moist, Normal Exam - Neck Exam Neck Exam: Full ROM, Normal Inspection. absent: Lymphadenopathy - Respiratory Exam Respiratory Exam: Decreased Breath Sounds - Cardiovascular Exam Cardiovascular Exam: REGULAR RHYTHM, +S1, +S2 - GI/Abdominal Exam GI & Abdominal Exam: Soft, Diminished Bowel Sounds - Rectal Exam Rectal Exam: Deferred
== END 2017-06-30 18:56 | disposition home or self-care (01) | DRG 690 ==
LOC: C.ER 15:33 → C.3T 19:53
PROVIDERS: ADMIT Internal Medicine Nephrology; ATTEND Internal Medicine Nephrology
DX: N10 Acute pyelonephritis (principal); F11.10 Opioid abuse, uncomplicated; B19.20 Unspecified viral hepatitis C without hepatic coma; J45.909 Unspecified asthma, uncomplicated; F31.9 Bipolar disorder, unspecified; F17.210 Nicotine dependence, cigarettes, uncomplicated; F41.9 Anxiety disorder, unspecified; Z90.49 Acquired absence of other specified parts of digestive tract; Z86.14 Personal history of Methicillin resistant Staphylococcus aureus infection

== ENCOUNTER 2017-10-16 20:55 | Emergency (ER) | payer BC, OTHER, MEDICAID ==
[2017-10-16 20:55] VITALS: BMI 22.7
[2017-10-16 21:16] VITALS: TEMP 97.5
[2017-10-16] MEDS ORDERED: Dextrose 50% VIAL Inj (50 ml) IV ONE (21:24)
[2017-10-16] MEDS ORDERED: Dextrose 50% SYRINGE Inj (50 ml) IV STA (21:30)
[2017-10-16 22:11] LABS: BASO % 0.3 % (0.0-2.0); EOS % 0.3 % (0.0-4.0); HEMOGLOBIN 12.1 g/dL (12.0-18.0); LYMPH # 0.8 K/uL (1.0-4.3); LYMPH % 9.1 % (20.0-40.0); MEAN CORPUSCULAR HEMOGLOBIN 25.1 pg (27.0-31.0); MEAN CORPUSCULAR HGB CONC 32.9 g/dL (33.0-37.0); MEAN PLATELET VOLUME 7.5 fL (7.2-11.7); MONO # 0.7 K/uL (0.0-0.8); MONO % 7.4 % (0.0-10.0); NEUT # 7.5 K/uL (1.8-7.0); NEUT % 82.9 % (50.0-75.0); PLATELET COUNT 285 K/uL (130-400); RBC 4.81 Mil/uL (4.40-5.90); RED CELL DISTRIBUTION WIDTH 15.4 % (11.5-14.5)
[2017-10-16 22:14] LABS: MEAN CELL VOLUME 76.2 fL (80.0-94.0)
[2017-10-16 22:23] LABS: ALBUMIN 4.1 g/dL (3.5-5.0); ALT/SGPT 55 U/L (21-72); AST/SGOT 50 U/L (17-59); BLOOD UREA NITROGEN 22 mg/dL (9-20); CALCIUM 7.9 mg/dl (8.6-10.4); GFR AFRICAN-AMERICAN > 60; GFR NON-AFRICAN AMERICAN > 60
[2017-10-16 22:25] LABS: ALB/GLOB RATIO 0.9 (1.0-2.1)
[2017-10-16 22:42] LABS: BANDS 1 % (0-2); LYMPHOCYTE 8 % (20-40); MONOCYTE 8 % (0-10); NEUTROPHIL 83 % (50-75); PLATELET ESTIMATE NORMAL (NORMAL); TOTAL CELLS COUNTED 100
[2017-10-16 22:43] LABS: HYPOCHROMIC SLIGHT; TARGET CELLS SLIGHT
[2017-10-16 23:08] LABS: SQUAMOUS EPITHIAL < 1 /hpf (0-5); URINE BACTERIA RARE (<OCC); URINE BILIRUBIN NEGATIVE (NEGATIVE); URINE BLOOD 2+ (NEGATIVE); URINE CLARITY Clear (Clear); URINE COLOR Yellow (YELLOW); URINE GLUCOSE (UA) 1+ mg/dL (Normal); URINE LEUKOCYTE ESTERASE NEG Leu/uL (Negative); URINE NITRATE NEGATIVE (NEGATIVE); URINE PROTEIN NEGATIVE (NEGATIVE); URINE UROBILINOGEN NORMAL mg/dL (0.2-1.0)
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
[2017-10-16 23:49] LABS: BARBITURATES, UR NEGATIVE (NEGATIVE); BENZODIAZEPINES, UR NEGATIVE (NEGATIVE); PHENCYCLIDINE, UR NEGATIVE (NEGATIVE)
[2017-10-16 23:50] LABS: OPIATES, UR POSITIVE (NEGATIVE)
[2017-10-17 05:41] VITALS: BP 128/67; PULSE 75; RESP 18; O2SAT 100
== END 2017-10-17 06:05 | disposition home or self-care (01) ==
LOC: C.ER 20:55
DX: F11.10 Opioid abuse, uncomplicated (principal)
CPT/HCPCS: 80053; 81001; 82948; 85025; 96374; 99285; G0480

== ENCOUNTER 2017-10-28 09:09 | Inpatient (IN) | payer BC, MEDICAID, OTHER ==
[2017-10-28 09:10] VITALS: BMI 22.7
[2017-10-28 10:10] LABS: BASO # 0.2 K/uL (0.0-0.2); BASO % 1.3 % (0.0-2.0); EOS % 0.3 % (0.0-4.0); HEMOGLOBIN 10.9 g/dL (12.0-18.0); LYMPH # 2.9 K/uL (1.0-4.3); LYMPH % 25.1 % (20.0-40.0); MEAN CELL VOLUME 77.5 fL (80.0-94.0); MEAN CORPUSCULAR HEMOGLOBIN 24.8 pg (27.0-31.0); MEAN PLATELET VOLUME 7.4 fL (7.2-11.7); MONO # 0.6 K/uL (0.0-0.8); MONO % 4.9 % (0.0-10.0); NEUT % 68.4 % (50.0-75.0); RBC 4.39 Mil/uL (4.40-5.90); RED CELL DISTRIBUTION WIDTH 15.4 % (11.5-14.5); WHITE BLOOD COUNT 11.7 K/uL (4.8-10.8)
[2017-10-28 10:25] LABS: SQUAMOUS EPITHIAL < 1 /hpf (0-5); URINE BILIRUBIN NEGATIVE (NEGATIVE); URINE CALCIUM OXALATE CRYSTALS FEW /hpf (<OCC); URINE CLARITY Clear (Clear); URINE COLOR Yellow (YELLOW); URINE GLUCOSE (UA) NORMAL (Normal); URINE LEUKOCYTE ESTERASE NEG Leu/uL (Negative); URINE NITRATE NEGATIVE (NEGATIVE); URINE PROTEIN NEGATIVE (NEGATIVE); URINE UROBILINOGEN NORMAL mg/dL (0.2-1.0)
[2017-10-28 10:26] LABS: ALB/GLOB RATIO 0.9 (1.0-2.1); ALBUMIN 3.5 g/dL (3.5-5.0); ALT/SGPT 41 U/L (21-72); AST/SGOT 27 U/L (17-59); BLOOD UREA NITROGEN 14 mg/dL (9-20); GFR AFRICAN-AMERICAN > 60; GFR NON-AFRICAN AMERICAN > 60
[2017-10-28 10:33] LABS: URINE BLOOD 1+ (NEGATIVE)
[2017-10-28 10:48] LABS: BARBITURATES, UR NEGATIVE (NEGATIVE); BENZODIAZEPINES, UR NEGATIVE (NEGATIVE); PHENCYCLIDINE, UR NEGATIVE (NEGATIVE)
[2017-10-28 10:59] LABS: OPIATES, UR POSITIVE (NEGATIVE)
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
--- NOTE | 2017-10-28 11:58 | RAD ---
HISTORY: screening COMPARISON: Chest x-ray performed 06/24/17 TECHNIQUE: Chest PA and lateral FINDINGS: LUNGS: No focal consolidation. Please note that chest x-ray has limited sensitivity for the detection of pulmonary masses. PLEURA: No significant pleural effusion identified. No definite pneumothorax . CARDIOVASCULAR: The cardiomediastinal silhouette appears within normal limits of size. OSSEOUS STRUCTURES: No acute osseous abnormality identified. VISUALIZED UPPER ABDOMEN: Unremarkable. OTHER FINDINGS: None. IMPRESSION: No focal consolidation, significant pleural effusion, or definite pneumothorax identified.
[2017-10-28] MEDS ORDERED: Aluminum Hydroxide/Magnesium Hydroxide Susp (30 mL) PO PRN (14:02)
[2017-10-28] MEDS ORDERED: Buprenorphine Hydrochloride 2 mg SL ONE ×2 (14:08→15:15)
--- NOTE | 2017-10-28 14:15 | PCM.PSYCH ---
Initial Psychiatric Evaluation - Initial Psychiatric Evaluation Type of Admission: Voluntary Legal Status: Capacity Chief Complaint (in patient's own words): "Withdrawing" History of Present Illness and Precipitating Events: The patient is seen, chart reviewed and case discussed. This is a 47-year-old male, single with 3 children, not with him, he is homeless and lives with his father in [place]. The patient is here for heroin detox; using 25-30 bags IV since age 14, on and off. Last use was 2 days ago and he has moderate her symptoms right now. He denies all other drug alcohol and cigarette use. This is his second detox and he has never been to rehabilitation. No Suboxone or methadone use either. Past psych history: Denies admissions or suicide attempts. He feels anxious. Family psych history: Denies Medical history: Mild asthma but only in summer time Current Medications: Active Medications Generic Name Dose Route Start Last Admin Trade Name Freq PRN Reason Stop Dose Admin Acetaminophen 650 mg 10/28/17 14:02 Tylenol 325mg Tab PO Q6H PRN Pain, moderate (4-7) Al Hydrox/Mg Hydrox/Simethicone 30 ml 10/28/17 14:02 Maalox 30 Ml PO TID PRN Indigestion / Heartburn Buprenorphine HCl 6 mg 10/28/17 15:15 Subutex SL 10/28/17 15:16 ONCE ONE Buprenorphine HCl 0 mg 10/29/17 10:00 Subutex SL 11/02/17 09:59 .[place] Taper Clonidine HCl 0.1 mg 10/28/17 14:02 Catapres PO Q8 PRN COWS Score More or Equal to 5 Hydroxyzine HCl 50 mg 10/28/17 14:08 Atarax PO Q6H PRN Anxiety Loperamide HCl 2 mg 10/28/17 14:02 Imodium PO Q8 PRN Diarrhea Ondansetron HCl 4 mg 10/28/17 14:02 Zofran Tab PO Q8 PRN Nausea/Vomiting Trazodone HCl 100 mg 10/28/17 22:00 Desyrel PO HS PARISH Past Psychiatric History - Past Psychiatric History Previous Treatment History: None Pertinent Medical Hx (Current Medical&Sleep Prob, Allergies): Allergies Allergy/AdvReac Type Severity Reaction Status Date / Time cat dander Allergy Intermediate SHORTNESS Verified 10/16/17 21:16 OF BREATH dog dander Allergy Intermediate SHORTNESS Verified 10/16/17 21:16 OF BREATH No Known Home Med 06/24/17 Review of Systems - Psychiatric Psychiatric: Abnormal Sleep Pattern, Anxiety, Difficulty Concentrating. absent : Hallucinations, Homicidal Ideation, Suicidal Ideation Mental Status Examination - Personal Presentation Personal Presentation: Looks stated age (tattooed, thin, cooperative) - Affect Affect: Constricted - Motor Activity Motor Activity: Calm - Reliability in Providing Information Reliability in Providing Information: Good - Speech Speech: Organized - Mood Mood: Anxious - Formal Thought Process Formal Thought Process: No Impairment - Cognitive Functions Orientation: Person, Place, Situation, Time Sensorium: Alert Attention/Concentration: Attentive Estimate of Intelligence: Average Judgement: Intact, as evidence by: Insight regarding need for hospitalization Memory: Recent intact, as evidence by: Ability to recall events of the day, Remote intact, as evidenced by: Abilit to recall sig. life events - Risk Risk: Withdrawal, Diminished functioning - Strength & Assets Inventory Strength & Assets Inventory: Cooperative - Limitations Limitations: Living alone, Other DSM 5 DX - DSM 5 DSM 5 Diagnosis: Opioid withdrawal Opioid use d/o - severe - Recommended/Plan of Treatment Treatment Recommendations and Plan of Treatment: Subutex detox As needed medications All risks, benefits and alternatives of the meds discussed, and the pt agreed and understood. Attend groups and activities Supportive therapy and psychoeducation [place] for abstinence CBT for relapse prevention Encourage MAT Refer to rehab or IOP, and self-help groups 34 min Projected ELOS: 4-5 days Prognosis: Good w treatment Discharge Plan and Discharge Criteria: No wdw sx refer torehab - Smoking Cessation Smoking Cessation Initiated: No Reason for not providing: nonsmoker
--- NOTE | 2017-10-28 14:25 | PCM.BM ---
<Priya Pepper - Last Filed: 10/28/17 14:23> Treatment Plan Problems - Problems identified on initial assessmt Potential for opiate withdrawal symptoms Date Initiated: 10/28/17 Assessment reference: NA Status: Active Treatment assets and liabiliti Patient Assests: adapts well, cooperative, motivated, ADL independent Patient Liabilities: financial problems, substance abuse - Milieu Protocol Maintain good personal hygiene: daily Encourage regular showers, daily Remind patient to perform daily oral care, daily Assist patient to perform ADL's Conduct patient checks and document Observation sheet: Q15 minutes Maintain personal safety: every shift Educate patient to report safety concerns to staff, every shift Monitor environment for contraband/sharps Medication safety: Monitor for expected outcome, potential side effects: every shift, Assess barriers to learning: every shift, Assess readiness for medication education: every shift Milieu Narrative: Subutex detox As needed medications All risks, benefits and alternatives of the meds discussed, and the pt agreed and understood. Attend groups and activities Supportive therapy and psychoeducation [place] for abstinence CBT for relapse prevention Encourage MAT Refer to rehab or IOP, and self-help groups 34 min Discharge/Continuing Care - Treatment Team Participation Patient/Family/SO Statement: Subutex detox As needed medications All risks, benefits and alternatives of the meds discussed, and the pt agreed and understood. Attend groups and activities Supportive therapy and psychoeducation [place] for abstinence CBT for relapse prevention Encourage MAT Refer to rehab or IOP, and self-help groups 34 min <Nafisa Quarles - Last Filed: 10/29/17 21:48> - Diagnosis (1) Opioid dependence Status: Acute Interventions: 10/29/17 21:48 * Assess 7x/week regarding severity of withdrawal * Educate regarding risks, benefits, side effects and alternatives of medications * Use Motivational Interviewing for abstinence * Use CBT for relapse prevention * Medication management for withdrawal symptoms * Encourage medication assisted treatment *
[2017-10-29] MEDS: Buprenorphine Hydrochloride 2 mg SL SCH (09:36)
[2017-10-29 10:37] LABS: HEPATITIS C ANTIBODY Reactive (NEGATIVE)
--- NOTE | 2017-10-29 14:58 | PCM.PYCHPN ---
Psychiatric Progress Note - Psychiatric Progress Note Patient seen today, length of contact: 16 min Patient Chief Complaint: "Not OK yet" Problems Identified/Issues Discussed: The pt is seen, chart reviewed, case discussed with staff. The pt is compliant with medications and reports no side-effects. Symptoms are improving but needs more time to stabilize. After care discussed, support and psychoeducation given. Medication Change: Yes Medical Record Reviewed: Yes Mental Status Examination - Cognitive Function Orientation: Person, Place, Situation, Time Memory: Intact Attention: WNL Concentration: WNL Association: WNL Fund of Knowledge: WNL - Mood Mood: Anxious - Affect Affect: Constricted - Speech Speech: Appropriate - Formal Thought Process Formal Thought Process: No Impairment - Suicidal Ideation Suicidal Ideation: No - Homicidal Ideation Homicidal Ideation: No Goal/Treatment Plan - Goal/Treatment Plan Need for Continued Stay: Discharge may exacerbated symptoms, Severe functional impairment Progress Toward Problem(s) and Goals/Treatment Plan: Subutex detox As needed medications All risks, benefits and alternatives of the meds discussed, and the pt agreed and understood. Attend groups and activities Supportive therapy and psychoeducation [place] for abstinence CBT for relapse prevention Encourage MAT Refer to rehab or IOP, and self-help groups
[2017-10-30] MEDS: Buprenorphine Hydrochloride 2 mg SL SCH (10:00)
--- NOTE | 2017-10-30 22:07 | PCM.PYCHPN ---
Psychiatric Progress Note - Psychiatric Progress Note Patient seen today, length of contact: 16 min Patient Chief Complaint: "I have pains" Problems Identified/Issues Discussed: The pt is seen, chart reviewed, case discussed with staff. Support given, CBT and MA used briefly No new symptoms reported, improving slowly and needs more time No SEs from medications, risks discussed. After care discussed - interested in [facility] or any other rehab Medication Change: Yes (detox changes daily) Medical Record Reviewed: Yes Mental Status Examination - Cognitive Function Orientation: Person, Place, Situation, Time Memory: Intact Attention: WNL Concentration: WNL Association: WNL Fund of Knowledge: WNL - Mood Mood: Anxious - Affect Affect: Constricted - Speech Speech: Appropriate - Formal Thought Process Formal Thought Process: No Impairment - Suicidal Ideation Suicidal Ideation: No - Homicidal Ideation Homicidal Ideation: No Goal/Treatment Plan - Goal/Treatment Plan Need for Continued Stay: Discharge may exacerbated symptoms, Severe functional impairment Progress Toward Problem(s) and Goals/Treatment Plan: Subutex detox As needed medications All risks, benefits and alternatives of the meds discussed, and the pt agreed and understood. Attend groups and activities Supportive therapy and psychoeducation [place] for abstinence CBT for relapse prevention Encourage MAT Refer to rehab or IOP, and self-help groups
[2017-10-31] MEDS ORDERED: Ergocalciferol 50,000 Intl Units Cap PO SCH (10:00)
[2017-10-31] MEDS: Buprenorphine Hydrochloride 2 mg SL SCH (10:11)
--- NOTE | 2017-10-31 10:18 | PCM.PYCHDC ---
Mental Status Examination - Mental Status Examination Orientation: Person, Place, Situation, Time Memory: Intact Mood: Anxious Affect: Broad Speech: Appropriate Attention: WNL Concentration: WNL Association: WNL Fund of Knowledge: WNL Formal Thought Process: No Impairment Suicidal Ideation: No Current Homicidal Ideation?: No Discharge Summary - Discharge Note Reason for Hospitalization: Heroin detox Consultations:: List each consultation separately and include: 1. Reason for request. 2. Findings. 3. Follow-up Summary of Hospital Course include:: 1. Description of specific treatment plan utilized for patients during their course of treatmen. 2. Summarize the time- course for resolution of acute symptoms and/or regressed behaviors. 3. Describe issues identified and worked on during hospitalization. 4. Describe medication utilized. 5. Describe medical problems identified and treated. 6. Reassessment of suicide risk Summary of Hospital Course: The patient is seen, chart reviewed and case discussed. On admission: This is a 47-year-old male, single with 3 children, not with him, he is homeless and lives with his father in [place]. The patient is here for heroin detox; using 25-30 bags IV since age 14, on and off. Last use was 2 days ago and he has moderate her symptoms right now. He denies all other drug alcohol and cigarette use. This is his second detox and he has never been to rehabilitation. No Suboxone or methadone use either. Past psych history: Denies admissions or suicide attempts. He feels anxious. Family psych history: Denies Medical history: Mild asthma but only in summer time Hospital course: The pt was admitted and started on treatment with psychotherapy, support, psychoeducation and medications. ID and CBT used. The pt attended groups and activities, as well as milieu therapy. All the risks and benefits of medications are discussed and the patient understood and agreed. The pt improved with the treatments provided. After care discussed with the patient. He went to [facility] . - Diagnosis (1) Opioid dependence Status: Acute - Final Diagnosis (DSM 5) Condition upon Discharge: STABLE Disposition: REHAB FACILITY/REHAB UNIT Follow-up Treatment Plan: Continue below medications after discharge. Follow after care plan as discussed. Use relapse prevention skills Return to ER or call 911 if suicidal, homicidal or symptoms relapse. Stay away from stress, alcohol and drugs. See primary doctor regularly and get labs. Prescriptions/Medication Reconciliation: Ergocalciferol [Drisdol 50,000 Intl Units Cap] 1 cap PO Q7D #7 cap QUEtiapine [Seroquel] 100 mg PO HS #30 tab traZODone [Desyrel] 100 mg PO HS #30 tab
[2017-10-31 10:27] VITALS: BP 102/65; PULSE 84; RESP 19; TEMP 97.6; O2SAT 100
== END 2017-10-31 10:30 | disposition home or self-care (01) | DRG 745 ==
LOC: C.ER 09:09 → C.7D 12:49
PROVIDERS: ADMIT Psychiatry & Neurology Psychiatry; ATTEND Psychiatry & Neurology Psychiatry
PROC: HZ2ZZZZ Detoxification Services for Substance Abuse Treatment (ICD-10-PCS; principal; 2017-10-28)
PROC: HZ52ZZZ Individual Psychotherapy for Substance Abuse Treatment, Cognitive-Behavioral (ICD-10-PCS; 2017-10-28)
PROC: HZ42ZZZ Group Counseling for Substance Abuse Treatment, Cognitive-Behavioral (ICD-10-PCS; 2017-10-28)
PROC: HZ59ZZZ Individual Psychotherapy for Substance Abuse Treatment, Supportive (ICD-10-PCS; 2017-10-28)
PROC: HZ56ZZZ Individual Psychotherapy for Substance Abuse Treatment, Psychoeducation (ICD-10-PCS; 2017-10-28)
PROC: HZ46ZZZ Group Counseling for Substance Abuse Treatment, Psychoeducation (ICD-10-PCS; 2017-10-28)
DX: F11.23 Opioid dependence with withdrawal (principal); F31.9 Bipolar disorder, unspecified; F41.9 Anxiety disorder, unspecified; M19.90 Unspecified osteoarthritis, unspecified site; Z59.0 Homelessness; J45.909 Unspecified asthma, uncomplicated

== ENCOUNTER 2018-08-23 12:11 | Emergency (ER) | payer BC, MEDICAID ==
[2018-08-23 12:17] VITALS: BMI 26.6
[2018-08-23 12:21] VITALS: RESP 18; O2SAT 100
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
[2018-08-23 13:13] LABS: BASO % 0.4 % (0.0-2.0); EOS % 0.1 % (0.0-4.0); HEMOGLOBIN 15.4 g/dL (12.0-18.0); LYMPH # 1.1 K/uL (1.0-4.3); LYMPH % 9.9 % (20.0-40.0); MEAN CELL VOLUME 81.3 fL (80.0-94.0); MEAN CORPUSCULAR HEMOGLOBIN 27.6 pg (27.0-31.0); MEAN PLATELET VOLUME 8.8 fL (7.2-11.7); MONO # 0.4 K/uL (0.0-0.8); MONO % 3.4 % (0.0-10.0); NEUT # 9.8 K/uL (1.8-7.0); NEUT % 86.2 % (50.0-75.0); NRBC % 0.1 % (0.0-2.0); RBC 5.57 Mil/uL (4.40-5.90); RED CELL DISTRIBUTION WIDTH 13.9 % (11.5-14.5); WHITE BLOOD COUNT 11.4 K/uL (4.8-10.8)
[2018-08-23 13:14] LABS: PLATELET COUNT 186 K/uL (130-400)
[2018-08-23 13:24] LABS: ALB/GLOB RATIO 1.3 (1.0-2.1); ALT/SGPT 164 U/L (21-72); AST/SGOT 113 U/L (17-59); BLOOD UREA NITROGEN 23 mg/dL (9-20); CALCIUM 9.4 mg/dl (8.6-10.4); GFR NON-AFRICAN AMERICAN > 60
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
[2018-08-23] MEDS ORDERED: Iodixanol 320 MG/ML 100 ML BOTTLE IV ONE (13:55)
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
[2018-08-23 14:07] LABS: ANISOCYTOSIS SLIGHT; LYMPHOCYTE 9 % (20-40); MONOCYTE 4 % (0-10); NEUTROPHIL 87 % (50-75); PLATELET ESTIMATE NORMAL (NORMAL); TOTAL CELLS COUNTED 100
[2018-08-23 14:08] LABS: POIKILOCYTOSIS SLIGHT; TOXIC GRANULATION PRESENT
[2018-08-23] MEDS ORDERED: Sodium Chloride 0.9% 1,000 ML IV ONE (14:59)
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
--- NOTE | 2018-08-23 15:22 | CT ---
CT maxillofacial History: Trauma. COMPARISON: None available. TECHNIQUE: Multiple contiguous axial images were performed through the maxillofacial region without the use of intravenous contrast. Subsequently, sagittal and coronal reformatted images were obtained. FINDINGS: Soft tissue swelling overlying right periorbital and maxillary regions. Mucosal retention cyst and or polyp within the right maxillary sinus. Mild mucosal thickening of the bilateral maxillary sinuses as well as the ethmoid air cells Bilateral mastoid air cells are preserved. Few dental caries are noted. No evidence of acute displaced fracture. Productive change at the atlantodental interval. Multilevel uncovertebral joint and facet hypertrophy. Visualized orbital globes appear preserved. Multilevel posterior disc osteophyte complexes. Impression: Soft tissue swelling overlying the right periorbital and maxillary regions. No evidence of acute displaced fracture. Sinus mucosal disease as above. Additional findings as above.
[2018-08-23] MEDS ORDERED: Sodium Chloride 0.9% 1,000 ML ONE (15:27)
[2018-08-23 15:29] VITALS: BP 123/69; PULSE 75; TEMP 97.6
--- NOTE | 2018-08-23 15:36 | CT ---
CT cervical spine History: Trauma. COMPARISON: None available. TECHNIQUE: Multiple contiguous axial images were performed through the cervical spine without the use of intravenous contrast. Subsequently, sagittal and coronal reformatted images were obtained. This CT exam was performed using one or more of the following dose reduction techniques: Automated exposure control, adjustment of the mA and/or kV according to patient size, and/or use of iterative reconstruction technique. Findings: Narrowing at the atlantodental interval with sclerosis, bony hypertrophy, and osteophytosis. Multilevel prominent posterior disc osteophyte complexes seen throughout the cervical and thoracic spine including at the C3-4, C4-5, C5-6, C7-T1, and T1-2 levels. Multilevel disc space narrowing most prominent at the C4-5 and C5-6 levels. Multilevel anterior osteophytosis throughout the cervical and upper thoracic spine Inferior endplate concavities of the C3, C4-C5, and C6 vertebral bodies. Mild loss of height of the C5 vertebral body. Multilevel uncovertebral joint and facet hypertrophy. Mucosal retention cyst and or polyp in the right maxillary sinus. Mucosal thickening of maxillary sinus. Impression: Degenerative changes. If pain persists, consider MRI.
--- NOTE | 2018-08-23 15:50 | CT ---
CT abdomen and pelvis History: Trauma. COMPARISON: CT scan dated 06/24/2017 TECHNIQUE: Multiple contiguous axial images were performed through the abdomen and pelvis with the use of intravenous contrast. Subsequently, sagittal and coronal reformatted images were obtained. This CT exam was performed using one or more of the following dose reduction techniques: Automated exposure control, adjustment of the mA and/or kV according to patient size, and/or use of iterative reconstruction technique. Findings: Mild atelectasis at the bases. No pleural or pericardial effusion. Prominent liver with mild fatty infiltration. Gallbladder preserved. Spleen preserved. Adrenal glands preserved. Pancreas preserved. Small hiatal hernia. Bilateral kidneys are grossly preserved. Mildly thick-walled urinary bladder. Prostatic calcification noted. Motion artifact limits evaluation of the bowel. Moderate fecal retention in the sigmoid colon and rectum. Appendix not well visualized. Few shotty para-aortic and inguinal lymph nodes. Few shotty mesenteric lymph nodes. Visualized aorta is grossly preserved. Degenerative changes in the spine. Degenerative changes in the bilateral hip joints. Mild levo scoliotic curvature of the mid lumbar spine. Impression: Negative acute abdomen and pelvis. Underdistended and or thick-walled urinary bladder Moderate fecal retention in the colon. Additional findings as above.
== END 2018-08-23 16:35 | disposition home or self-care (01) ==
LOC: C.ER 12:11
DX: T14.8XXA Other injury of unspecified body region, initial encounter (principal); Y04.0XXA Assault by unarmed brawl or fight, initial encounter; M25.562 Pain in left knee; R10.32 Left lower quadrant pain; R07.9 Chest pain, unspecified
CPT/HCPCS: 70450; 70480; 71046; 72125; 73560; 74177; 80053; 82550; 85025; 86850; 86860; 86870; 86900; 99285; J7030; Q9967

== ENCOUNTER 2018-11-07 23:35 | Emergency (ER) | payer SELFPAY ==
[2018-11-07 23:59] VITALS: PULSE 84
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
[2018-11-08 06:05] VITALS: BP 100/70; RESP 20; TEMP 98; O2SAT 98
== END 2018-11-08 06:04 | disposition home or self-care (01) ==
LOC: MERGE 23:35 → C.ER 23:35
DX: F19.10 Other psychoactive substance abuse, uncomplicated (principal)

== ENCOUNTER 2018-11-09 15:45 | Inpatient (IN) | payer BC, MEDICAID ==
[2018-11-09 15:45] VITALS: BMI 26.6
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
[2018-11-09 16:57] LABS: BASO % 0.4 % (0.0-2.0); EOS % 0.5 % (0.0-4.0); HEMOGLOBIN 14.7 g/dL (12.0-18.0); LYMPH # 1.6 K/uL (1.0-4.3); LYMPH % 27.5 % (20.0-40.0); MEAN CELL VOLUME 82.9 fL (80.0-94.0); MEAN CORPUSCULAR HEMOGLOBIN 26.8 pg (27.0-31.0); MEAN CORPUSCULAR HGB CONC 32.4 g/dL (33.0-37.0); MEAN PLATELET VOLUME 8.5 fL (7.2-11.7); MONO # 0.6 K/uL (0.0-0.8); MONO % 9.8 % (0.0-10.0); NEUT # 3.7 K/uL (1.8-7.0); NEUT % 61.8 % (50.0-75.0); NRBC % 0.1 % (0.0-2.0); RBC 5.47 Mil/uL (4.40-5.90); RED CELL DISTRIBUTION WIDTH 13.4 % (11.5-14.5)
[2018-11-09 17:04] LABS: SQUAMOUS EPITHIAL 1 /hpf (0-5); URINE BILIRUBIN NEGATIVE (NEGATIVE); URINE BLOOD 1+ (NEGATIVE); URINE CLARITY Clear (Clear); URINE COLOR Yellow (YELLOW); URINE GLUCOSE (UA) NORMAL (Normal); URINE LEUKOCYTE ESTERASE NEG Leu/uL (Negative); URINE PROTEIN 1+ mg/dL (NEGATIVE)
[2018-11-09 17:14] LABS: ACETAMINOPHEN < 10.0 ug/mL (10.0-30.0); ALB/GLOB RATIO 1.5 (1.0-2.1); ALBUMIN 4.7 g/dL (3.5-5.0); ALT/SGPT 115 U/L (21-72); AST/SGOT 72 U/L (17-59); BLOOD UREA NITROGEN 18 mg/dL (9-20); CALCIUM 8.8 mg/dl (8.6-10.4); GFR NON-AFRICAN AMERICAN > 60; SALICYLATE < 1.0 mg/dL 1
[2018-11-09 17:28] LABS: BARBITURATES, UR NEGATIVE (NEGATIVE); BENZODIAZEPINES, UR NEGATIVE (NEGATIVE); OPIATES, UR POSITIVE (NEGATIVE); PHENCYCLIDINE, UR NEGATIVE (NEGATIVE)
--- NOTE | 2018-11-09 19:12 | PCM.BM ---
<Cassie Mo - Last Filed: 11/09/18 19:10> Treatment Plan Problems - Problems identified on initial assessmt depression Date Initiated: 11/09/18 Time Initiated: 19:11 Assessment reference: NA substance abuse Date Initiated: 11/09/18 Time Initiated: 19:11 Assessment reference: NA Treatment assets and liabiliti Patient Assests: adapts well, cooperative, motivated, ADL independent, physically healthy, negotiates basic needs, cognitively intact Patient Liabilities: substance abuse - Milieu Protocol Maintain good personal hygiene: daily Encourage regular showers, daily Remind patient to perform daily oral care, daily Assist patient to perform ADL's Conduct patient checks and document Observation sheet: Q15 minutes Maintain personal safety: every shift Educate patient to report safety concerns to staff, every shift Monitor environment for contraband/sharps Medication safety: Monitor for expected outcome, potential side effects: every shift, Assess barriers to learning: every shift, Assess readiness for medication education: every shift <Nafisa Quarles - Last Filed: 11/10/18 17:06> - Diagnosis (1) Major depression Status: Acute Interventions: 11/10/18 17:06 * Assess/adjust medications daily and /or as needed * See patient on an individual basis 7x/week to assess symptoms of depression * Monitor for side effects & effectiveness of medications * (2) Opioid dependence Status: Acute Interventions: 11/10/18 17:07 * Assess 7x/week regarding severity of withdrawal * Educate regarding risks, benefits, side effects and alternatives of medications * Use Motivational Interviewing for abstinence * Use CBT for relapse prevention * Medication management for withdrawal symptoms * Encourage medication assisted treatment * <Leatha Vivar - Last Filed: 11/11/18 11:57> Family Contact Family involvement: Famliy/SO not involved - Goals for Treatment Patient goals for treatment: "I don't know." Discharge/Continuing Care - Education Needs Education Needs: Patient Medication, Patient Coping Skills, Patient Placement options, Patient Community resources - Discharge Discharge Criteria: Tolerates medication w/o severe side effects Discharge to:: Substance Abuse Rehab - Treatment Team Participation Discussed with Family/SO: No Was Patient/Family/SO present at Treatment Team Meeting: Yes
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
[2018-11-11 07:03] VITALS: O2SAT 97
--- NOTE | 2018-11-11 15:55 | PCM.PYCHPN ---
Psychiatric Progress Note - Psychiatric Progress Note Patient seen today, length of contact: 16 min Patient Chief Complaint: "I'm depressed" Problems Identified/Issues Discussed: The pt is seen, chart reviewed, case discussed with staff. The pt is compliant with medications and reports no side-effects. Symptoms are improving but needs more time to stabilize. Pt attends groups and activities. Support given, psycho-education provided. After care discussed. "I don't know yet" he says. Rehab recommended Medication Change: Yes Medical Record Reviewed: Yes Mental Status Examination - Cognitive Function Orientation: Person, Place, Situation, Time Memory: Intact Attention: Poor Concentration: WNL Fund of Knowledge: WNL - Mood Mood: Depressed, Anxious - Affect Affect: Blunted - Speech Speech: Appropriate - Formal Thought Process Formal Thought Process: No Impairment - Suicidal Ideation Suicidal Ideation: No - Homicidal Ideation Homicidal Ideation: No Goal/Treatment Plan - Goal/Treatment Plan Need for Continued Stay: Severe depression anxiety, Discharge may exacerbated symptoms, Severe functional impairment Progress Toward Problem(s) and Goals/Treatment Plan: Remeron for insomnia and depressive symptoms Gabapentin for augmentation if needed As needed medications All risks, benefits and alternatives of the meds discussed, and the pt agreed and understood. Attend groups and activities Supportive therapy and psychoeducation [place] for abstinence CBT for relapse prevention Encourage MAT Refer to rehab or IOP, and self-help groups Teach healthy lifestyle methods, i.e. diet, exercise, meditation Smoking cessation with [place] Nicotine patch if needed Estimated Date of D/C: 11/16/18
--- NOTE | 2018-11-12 12:11 | PCM.PYCHPN ---
Psychiatric Progress Note - Psychiatric Progress Note Patient seen today, length of contact: 16 min Patient Chief Complaint: "I am withdrawing" Problems Identified/Issues Discussed: The pt is seen, chart reviewed, case discussed with staff. Support and psychoeducation given, CBT and AR used briefly He is improving slowly and needs more time He has withdrawal symptoms today and methadone will be started No SEs from medications, risks discussed. After care discussed Medication Change: Yes (methadone taper, remeron increased) Medical Record Reviewed: Yes Mental Status Examination - Cognitive Function Orientation: Person, Place, Situation, Time Memory: Intact Attention: Poor Concentration: WNL Fund of Knowledge: WNL - Mood Mood: Depressed, Anxious - Affect Affect: Blunted - Speech Speech: Appropriate - Formal Thought Process Formal Thought Process: No Impairment - Suicidal Ideation Suicidal Ideation: No - Homicidal Ideation Homicidal Ideation: No Goal/Treatment Plan - Goal/Treatment Plan Need for Continued Stay: Severe depression anxiety, Discharge may exacerbated symptoms, Severe functional impairment Progress Toward Problem(s) and Goals/Treatment Plan: Remeron for insomnia and depressive symptoms Gabapentin for augmentation if needed Methadone taper As needed medications All risks, benefits and alternatives of the meds discussed, and the pt agreed and understood. Attend groups and activities Supportive therapy and psychoeducation [place] for abstinence CBT for relapse prevention Encourage MAT Refer to rehab or IOP, and self-help groups Teach healthy lifestyle methods, i.e. diet, exercise, meditation Smoking cessation with [place] Nicotine patch if needed Estimated Date of D/C: 11/16/18
--- NOTE | 2018-11-13 11:50 | PCM.PYCHPN ---
Psychiatric Progress Note - Psychiatric Progress Note Patient seen today, length of contact: 15 min Patient Chief Complaint: "I am withdrawing" Problems Identified/Issues Discussed: The pt is seen again, chart reviewed, and case is discussed with the team. The pt denies any side-effects from meds. Attends activities and groups, brief individual therapy provided Not ready for discharge due to ongoing symptoms and high relapse risk. After care discussed again. Unsure about f/u again Medication Change: Yes (meds change daily, ie methadone) Medical Record Reviewed: Yes Mental Status Examination - Cognitive Function Orientation: Person, Place, Situation, Time Memory: Intact Attention: Poor Concentration: WNL Fund of Knowledge: WNL - Mood Mood: Depressed, Anxious - Affect Affect: Blunted - Speech Speech: Appropriate - Formal Thought Process Formal Thought Process: No Impairment - Suicidal Ideation Suicidal Ideation: No - Homicidal Ideation Homicidal Ideation: No Goal/Treatment Plan - Goal/Treatment Plan Need for Continued Stay: Severe depression anxiety, Discharge may exacerbated symptoms, Severe functional impairment Progress Toward Problem(s) and Goals/Treatment Plan: Remeron for insomnia and depressive symptoms Gabapentin for augmentation if needed Methadone taper As needed medications All risks, benefits and alternatives of the meds discussed, and the pt agreed and understood. Attend groups and activities Supportive therapy and psychoeducation [place] for abstinence CBT for relapse prevention Encourage MAT Refer to rehab or IOP, and self-help groups Teach healthy lifestyle methods, i.e. diet, exercise, meditation Smoking cessation with [place] Nicotine patch if needed Estimated Date of D/C: 11/16/18
--- NOTE | 2018-11-14 21:21 | PCM.PYCHPN ---
Psychiatric Progress Note - Psychiatric Progress Note Patient seen today, length of contact: 16 min Patient Chief Complaint: "I am not well" Problems Identified/Issues Discussed: The pt is seen, chart reviewed, case discussed with staff. Support and psychoeducation given, CBT and PA used briefly No new symptoms reported, improving slowly and needs more time No SEs from medications, risks discussed. After care discussed Medication Change: Yes (meds change daily, ie methadone) Medical Record Reviewed: Yes Mental Status Examination - Cognitive Function Orientation: Person, Place, Situation, Time Memory: Intact Attention: Poor Concentration: WNL Fund of Knowledge: WNL - Mood Mood: Depressed, Anxious - Affect Affect: Constricted - Speech Speech: Appropriate - Formal Thought Process Formal Thought Process: No Impairment - Suicidal Ideation Suicidal Ideation: No - Homicidal Ideation Homicidal Ideation: No Goal/Treatment Plan - Goal/Treatment Plan Need for Continued Stay: Severe depression anxiety, Discharge may exacerbated symptoms, Severe functional impairment Progress Toward Problem(s) and Goals/Treatment Plan: Remeron for insomnia and depressive symptoms Gabapentin for augmentation if needed Methadone taper As needed medications All risks, benefits and alternatives of the meds discussed, and the pt agreed and understood. Attend groups and activities Supportive therapy and psychoeducation [place] for abstinence CBT for relapse prevention Encourage MAT Refer to rehab or IOP, and self-help groups Teach healthy lifestyle methods, i.e. diet, exercise, meditation Smoking cessation with [place] Nicotine patch if needed Estimated Date of D/C: 11/17/18 If changed, why: not doing well yet
--- NOTE | 2018-11-16 13:37 | PCM.PYCHPN ---
Psychiatric Progress Note - Psychiatric Progress Note Patient seen today, length of contact: 16 min Patient Chief Complaint: "I am tired and sad" Problems Identified/Issues Discussed: The pt is seen, chart reviewed, case discussed with staff. The pt is compliant with medications and reports no side-effects. Symptoms are improving but needs more time to stabilize. Pt attends groups and activities. Support given, psycho-education provided. After care discussed. Still fixated on [facility] SW to refer there and elsewhere as [facility] is almost always full Medication Change: No Medical Record Reviewed: Yes Mental Status Examination - Cognitive Function Orientation: Person, Place, Situation, Time Memory: Intact Attention: Poor Concentration: WNL Fund of Knowledge: WNL - Mood Mood: Depressed, Anxious - Affect Affect: Constricted - Speech Speech: Appropriate - Formal Thought Process Formal Thought Process: No Impairment - Suicidal Ideation Suicidal Ideation: No - Homicidal Ideation Homicidal Ideation: No Goal/Treatment Plan - Goal/Treatment Plan Need for Continued Stay: Severe depression anxiety, Discharge may exacerbated symptoms, Severe functional impairment Progress Toward Problem(s) and Goals/Treatment Plan: Remeron for insomnia and depressive symptoms Gabapentin for augmentation if needed Methadone taper As needed medications All risks, benefits and alternatives of the meds discussed, and the pt agreed and understood. Attend groups and activities Supportive therapy and psychoeducation [place] for abstinence CBT for relapse prevention Encourage MAT Refer to rehab or IOP, and self-help groups Teach healthy lifestyle methods, i.e. diet, exercise, meditation Smoking cessation with [place] Nicotine patch if needed Estimated Date of D/C: 11/18/18
--- NOTE | 2018-11-17 13:51 | PCM.PYCHPN ---
Psychiatric Progress Note - Psychiatric Progress Note Patient seen today, length of contact: 15 min Patient Chief Complaint: "Worried" Problems Identified/Issues Discussed: The pt is seen, chart reviewed, case discussed with staff. Support and psychoeducation given, CBT and NC used briefly again No SEs from medications, risks discussed. After care discussed Still insisting on [facility] Other options discussed Still depressed but no longer suicidal Medication Change: No Medical Record Reviewed: Yes Mental Status Examination - Cognitive Function Orientation: Person, Place, Situation, Time Memory: Intact Attention: Poor Concentration: WNL Fund of Knowledge: WNL - Mood Mood: Depressed, Anxious - Affect Affect: Constricted - Speech Speech: Appropriate - Formal Thought Process Formal Thought Process: No Impairment - Suicidal Ideation Suicidal Ideation: No - Homicidal Ideation Homicidal Ideation: No Goal/Treatment Plan - Goal/Treatment Plan Need for Continued Stay: Severe depression anxiety, Discharge may exacerbated symptoms, Severe functional impairment Progress Toward Problem(s) and Goals/Treatment Plan: Remeron for insomnia and depressive symptoms Gabapentin for augmentation if needed Methadone taper As needed medications All risks, benefits and alternatives of the meds discussed, and the pt agreed and understood. Attend groups and activities Supportive therapy and psychoeducation [place] for abstinence CBT for relapse prevention Encourage MAT Refer to rehab or IOP, and self-help groups Teach healthy lifestyle methods, i.e. diet, exercise, meditation Smoking cessation with [place] Nicotine patch if needed Estimated Date of D/C: 11/18/18
--- NOTE | 2018-11-18 09:39 | PCM.BM ---
<Leatha Vivar - Last Filed: 11/18/18 09:39> Treatment Plan Problems - Problems identified on initial assessmt depression Date Initiated: 11/09/18 Time Initiated: 19:11 Assessment reference: NA substance abuse Date Initiated: 11/09/18 Time Initiated: 19:11 Assessment reference: NA Treatment assets and liabiliti Patient Assests: adapts well, cooperative, motivated, ADL independent, physically healthy, negotiates basic needs, cognitively intact Patient Liabilities: substance abuse - Milieu Protocol Maintain good personal hygiene: daily Encourage regular showers, daily Remind patient to perform daily oral care, daily Assist patient to perform ADL's Conduct patient checks and document Observation sheet: Q15 minutes Maintain personal safety: every shift Educate patient to report safety concerns to staff, every shift Monitor environment for contraband/sharps Medication safety: Monitor for expected outcome, potential side effects: every shift, Assess barriers to learning: every shift, Assess readiness for medication education: every shift Milieu Narrative: Remeron for insomnia and depressive symptoms Gabapentin for augmentation if needed Methadone taper As needed medications All risks, benefits and alternatives of the meds discussed, and the pt agreed and understood. Attend groups and activities Supportive therapy and psychoeducation [place] for abstinence CBT for relapse prevention Encourage MAT Refer to rehab or IOP, and self-help groups Teach healthy lifestyle methods, i.e. diet, exercise, meditation Smoking cessation with [place] Nicotine patch if needed Family Contact Family involvement: Famliy/SO not involved - Goals for Treatment Patient goals for treatment: "I don't know." Discharge/Continuing Care - Education Needs Education Needs: Patient Medication, Patient Coping Skills, Patient Placement options, Patient Community resources - Discharge Discharge Criteria: Tolerates medication w/o severe side effects Discharge to:: Substance Abuse Rehab - Treatment Team Participation Patient/Family/SO Statement: Remeron for insomnia and depressive symptoms Gabapentin for augmentation if needed Methadone taper As needed medications All risks, benefits and alternatives of the meds discussed, and the pt agreed and understood. Attend groups and activities Supportive therapy and psychoeducation [place] for abstinence CBT for relapse prevention Encourage MAT Refer to rehab or IOP, and self-help groups Teach healthy lifestyle methods, i.e. diet, exercise, meditation Smoking cessation with [place] Nicotine patch if needed Discussed with Family/SO: No Was Patient/Family/SO present at Treatment Team Meeting: Yes Treatment Plan Review - Problem depression Time Initiated: 19:11 substance abuse Time Initiated: 19:11 - Discharge / Continuing Care Discharge to:: Substance Abuse Rehab Behavioral Health Services: Other Health Needs: Medications/Rx, Alcohol/Drug treatment <Nafisa Quarles - Last Filed: 11/18/18 11:00> - Diagnosis (1) Major depression Status: Acute Interventions: 11/18/18 11:00 * Assess/adjust medications daily and /or as needed * See patient on an individual basis 7x/week to assess symptoms of depression * Monitor for side effects & effectiveness of medications * (2) Opioid dependence Status: Acute Interventions: 11/18/18 11:00 * * Educate regarding risks, benefits, side effects and alternatives of medications * Use Motivational Interviewing for abstinence * Use CBT for relapse prevention * * Encourage medication assisted treatment * <Monika Claros - Last Filed: 11/18/18 15:46> - Milieu Protocol Maintain good personal hygiene: daily Encourage regular showers, daily Remind patient to perform daily oral care, daily Assist patient to perform ADL's Maintain personal safety: every shift Educate patient to report safety concerns to staff, every shift Monitor environment for contraband/sharps Medication safety: Monitor for expected outcome, potential side effects: every shift, Assess barriers to learning: every shift Treatment Plan Review - Problem depression Progress toward outcomes: improved substance abuse Progress toward outcomes: improved
--- NOTE | 2018-11-18 11:01 | PCM.PYCHPN ---
Psychiatric Progress Note - Psychiatric Progress Note Patient seen today, length of contact: 15 min Patient Chief Complaint: "Worried" Problems Identified/Issues Discussed: The pt is seen, chart reviewed, case discussed with staff. Support and psychoeducation given, CBT and MT used briefly again No SEs from medications, risks discussed. After care discussed Still insisting on [facility] Other options discussed Still depressed but no longer suicidal Medication Change: No Medical Record Reviewed: Yes Mental Status Examination - Cognitive Function Orientation: Person, Place, Situation, Time Memory: Intact Attention: Poor Concentration: WNL Fund of Knowledge: WNL - Mood Mood: Depressed, Anxious - Affect Affect: Constricted - Speech Speech: Appropriate - Formal Thought Process Formal Thought Process: No Impairment - Suicidal Ideation Suicidal Ideation: No - Homicidal Ideation Homicidal Ideation: No Goal/Treatment Plan - Goal/Treatment Plan Need for Continued Stay: Severe depression anxiety, Discharge may exacerbated symptoms, Severe functional impairment Progress Toward Problem(s) and Goals/Treatment Plan: Remeron for insomnia and depressive symptoms Gabapentin for augmentation if needed Methadone taper As needed medications All risks, benefits and alternatives of the meds discussed, and the pt agreed and understood. Attend groups and activities Supportive therapy and psychoeducation [place] for abstinence CBT for relapse prevention Encourage MAT Refer to rehab or IOP, and self-help groups Teach healthy lifestyle methods, i.e. diet, exercise, meditation Smoking cessation with [place] Nicotine patch if needed Estimated Date of D/C: 11/18/18
[2018-11-19 06:51] VITALS: BP 145/82; PULSE 74; RESP 20; TEMP 98.1
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
== END 2018-11-19 08:30 | disposition home or self-care (01) | DRG 885 ==
LOC: C.ER 15:45 → C.5E 18:23
PROVIDERS: ADMIT Psychiatry & Neurology Psychiatry; ATTEND Psychiatry & Neurology Psychiatry
PROC: GZHZZZZ Group Psychotherapy (ICD-10-PCS; principal; 2018-11-09)
PROC: HZ52ZZZ Individual Psychotherapy for Substance Abuse Treatment, Cognitive-Behavioral (ICD-10-PCS; 2018-11-09)
PROC: HZ59ZZZ Individual Psychotherapy for Substance Abuse Treatment, Supportive (ICD-10-PCS; 2018-11-09)
PROC: HZ56ZZZ Individual Psychotherapy for Substance Abuse Treatment, Psychoeducation (ICD-10-PCS; 2018-11-09)
PROC: HZ42ZZZ Group Counseling for Substance Abuse Treatment, Cognitive-Behavioral (ICD-10-PCS; 2018-11-09)
PROC: HZ46ZZZ Group Counseling for Substance Abuse Treatment, Psychoeducation (ICD-10-PCS; 2018-11-09)
PROC: GZ58ZZZ Individual Psychotherapy, Cognitive-Behavioral (ICD-10-PCS; 2018-11-09)
PROC: GZ56ZZZ Individual Psychotherapy, Supportive (ICD-10-PCS; 2018-11-09)
PROC: HZ2ZZZZ Detoxification Services for Substance Abuse Treatment (ICD-10-PCS; 2018-11-09)
DX: F32.1 Major depressive disorder, single episode, moderate (principal); F11.23 Opioid dependence with withdrawal; R45.851 Suicidal ideations; F31.9 Bipolar disorder, unspecified; J45.909 Unspecified asthma, uncomplicated; Z59.0 Homelessness; G47.00 Insomnia, unspecified; F41.9 Anxiety disorder, unspecified

== ENCOUNTER 2019-01-08 22:00 | Emergency (ER) | payer BC, MEDICAID ==
[2019-01-08 22:00] VITALS: BMI 26.6
[2019-01-08 22:10] VITALS: BP 125/82; PULSE 90; RESP 20; TEMP 98; O2SAT 100
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
--- NOTE | 2019-01-09 11:58 | RAD ---
Date of service: 01/08/2019 PROCEDURE: Left Knee Radiographs. HISTORY: Pain. COMPARISON: Comparison is made with 08/23/2018 TECHNIQUE: 2 views obtained. FINDINGS: BONES: Normal. No fracture. JOINTS: Normal. No osteoarthritis. JOINT EFFUSION: None. OTHER FINDINGS: None. IMPRESSION: No evidence of acute fracture or dislocation.
--- NOTE | 2019-01-09 12:18 | RAD ---
Date of service: 01/08/2019 PROCEDURE: Left Ankle Radiographs. HISTORY: fall , ,pain COMPARISON: None available. TECHNIQUE: 3 views obtained. FINDINGS: BONES: No definite evidence of acute fracture. The talar dome is intact. JOINTS: Mild osteoarthritis is noted.. Ankle mortise maintained. Talar dome intact SOFT TISSUES: Soft tissue swelling is noted. OTHER FINDINGS: None. IMPRESSION: No definite evidence of acute displaced fracture. If clinically warranted further assessment by CT may be obtained. Soft tissue swelling suggestive of soft tissue injury.
== END 2019-01-08 23:57 | disposition home or self-care (01) ==
LOC: C.ER 22:00
DX: S83.92XA Sprain of unspecified site of left knee, initial encounter (principal); W01.0XXA Fall on same level from slipping, tripping and stumbling without subsequent striking against object, initial encounter

== ENCOUNTER 2019-01-13 15:02 | Emergency (ER) | payer BC, MEDICAID ==
[2019-01-13 15:03] VITALS: BMI 26.6
[2019-01-13 15:20] VITALS: BP 105/62; PULSE 70; RESP 18; TEMP 98.6; O2SAT 98
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
== END 2019-01-13 15:30 | disposition home or self-care (01) ==
LOC: C.ER 15:02
DX: T40.601A Poisoning by unspecified narcotics, accidental (unintentional), initial encounter (principal)